=== PATIENT | male | born 2000 | race Caucasian/White ===

== ENCOUNTER 2022-05-06 16:35 | Emergency (ER) | payer MEDICAID, SELFPAY ==
[2022-05-06 16:48] VITALS: BP 140/83; PULSE 82; RESP 16; TEMP 36.6; O2SAT 97; BMI 27.9
[2022-05-06 17:00] VITALS: BP 129/84; PULSE 79; RESP 18; O2SAT 95
--- NOTE | 2022-05-06 17:18 | ED.GENADULT ---
HPI - General Adult General Chief complaint: Shortness of Breath/Dyspnea Stated complaint: Has Covid, shortness of breath Time Seen by Provider: 05/06/22 16:40 History of Present Illness HPI narrative: This 21-year-old male comes in reporting symptoms related to COVID infection. He has some nasal congestion and cough. He does notice some mild shortness of breath with exertion. He feels rather normal at rest. He was instructed to come here for evaluation by his transplant immunologist. He arrives with normal vital signs and oximetry at 97% on room air. He states that he is coughing considerable amount, especially at night. Related Data Home Medications Medication Instructions Recorded Confirmed albuterol sulfate 90 mcg/actuation inhalation 05/06/22 aerosol inhaler (Ventolin HFA) Previous Rx's Medication Instructions Recorded methylprednisolone 4 mg tablets in See Rx Instructions PO .COMPLEX 05/06/22 a dose pack (Medrol (Sánchez)) #21 ea Allergies Allergy/AdvReac Type Severity Reaction Status Date / Time No Known Drug Allergies Allergy Verified 05/06/22 16:54 Review of Systems Status of ROS: Reports: 10 or more systems reviewed and unremarkable except as noted in History and below Narrative: Constitutional: No fevers, no weight gain or loss. Eyes: No discharge. No vision changes. HENT: No congestion, no sore throat, no ear pain. Cardiovascular: No chest pain, no palpitations. Respiratory: Nonproductive cough. No wheezes. Some mild shortness of breath with exertion. Gastrointestinal: No abdominal pain, no vomiting, no diarrhea. Genitourinary: No dysuria, no hematuria. Musculoskeletal: Normal range of motion. Skin: No rashes, no pruritis. Neurological: No dizziness, weakness, sensory change, speech change. Endo/Heme/Allergies: No bruising or bleeding. No polydipsia. Pysch: no suicidality, no anxiety, no insomnia. All other systems reviewed and are negative. PFSH PFSH Social History Smoking Status: Never smoker Do you use any of these nicotine containing products: None Second hand tobacco smoke exposure: No How often do you have a drink containing alcohol: never AUDIT-C Alcohol total score: 0 Non-prescribed substance use: denies use Exam Narrative: Exam Narrative: Constitutional: Well-developed, well-nourished, no acute distress. HEENT: Normocephalic, atraumatic. Neck: Normal range of motion. Nontender. Supple. Heart: Regular. No murmurs. Normal rate. Intact distal pulses. Lungs: Clear to auscultation. No chest discomfort. No wheezes, rhonchi, or rales. Abdomen: Normal bowel sounds. Nontender. No rebound tenderness. Genitalia: Deferred. Back: No midline tenderness. Normal range of motion. Extremities: Normal range of motion. No injury. Skin: Intact. No rash. Warm. No erythema or pallor. Neurologic: No altered sensation. No weakness. Alert and oriented. Psychiatric: No suicidality. No anxiety or depression. No insomnia. Nursing notes and vitals signs are reviewed. Const: Vital Signs, click to edit/add: Vital Signs - 24 hr 05/06/22 16:48 Temperature 97.9 F Pulse Rate [Pulse Oximeter] 82 Respiratory Rate 16 Blood Pressure [Ri ght Upper Arm] 140/83 H Pulse Oximetry 97 Oxygen Delivery Me thod Room Air Course Vital Signs Vital signs: Initial Vital Signs Temperature 97.9 F 05/06/22 16:48 Temperature Source Temporal Artery Scan 05/06/22 16:48 Pulse Rate 82 05/06/22 16:48 Respiratory Rate 16 05/06/22 16:48 Blood Pressure 140/83 H 05/06/22 16:48 Blood Pressure Mean 102 05/06/22 16:48 Blood Pressure Position Supine 05/06/22 16:48 Pulse Oximetry 97 05/06/22 16:48 Oxygen Delivery Method 05/06/22 16:48 Vital Signs Temperature 97.9 F 05/06/22 16:48 Pulse Rate 82 05/06/22 16:48 Respiratory Rate 16 05/06/22 16:48 Blood Pressure 140/83 H 05/06/22 16:48 Pulse Oximetry 97 05/06/22 16:48 Oxygen Delivery Method 05/06/22 16:48 Temperature 97.9 F 05/06/22 16:48 Pulse Rate 82 05/06/22 16:48 Respiratory Rate 16 05/06/22 16:48 Blood Pressure 140/83 H 05/06/22 16:48 Pulse Oximetry 97 05/06/22 16:48 Oxygen Delivery Method 05/06/22 16:48 Medical Decision Making MDM Narrative Medical decision making narrative: This patient comes in for evaluation of symptoms related to COVID. He was tested positive about a week ago. He arrives with normal vital signs and has a rather normal exam. He does not appear to be in much distress. He is not using any accessory muscles for breathing and has normal oximetry on room air. I did discuss lab and imaging options with the patient and in a process of shared decision making these were declined for now. He did receive an oral dose of dexamethasone 10 mg. And a prescription for Tylenol 3 was provided. Discharge Plan Discharge Clinical Impression: COVID-19 Patient Disposition: Home, Self-Care Condition: Stable Additional Instructions: Use medicine as needed and directed. Follow up with MD or return if worsening symptoms occur. Prescriptions: New methylprednisolone [Medrol (Sánchez)] 4 mg tablets,dose pack See Rx Instructions .ROUTE .COMPLEX Qty: 21 0RF Rx Instructions: orally per package directions No Action albuterol sulfate [Ventolin HFA] 90 mcg/actuation HFA aerosol inhaler INHALATION Label Comments: INHALE 1 TO 2 PUFFS BY MOUTH EVERY 4 HOURS NEEDED FOR SHORTNESS OF BREATH Follow Up/Referrals: Luca Wagoner MD [Primary Care Provider] - Stand Alone Forms: [facility] Info Instructions
[2022-05-06 17:30] VITALS: BP 104/75; PULSE 71; RESP 16; O2SAT 99
--- OUTSIDE RECORDS SUMMARY | 2022-05-06 17:43 | XMS_ITS | Encounter Summary ---
:2000 [facility] Address [address], [place] [address] Care Team Providers Name Role Phone Merari Chandler APRN, CNP Primary Care Provider Reason for Visit Reason Comments IMMUNIZATIONS Encounter Details Date Type Department Care Team Description 05/30/2012 Nursing Visit [facility] 3850 Nurse, [id number] Ped Vari ojse vaccine Pediatrics (Primary Dx) [address] [facility] [place] [address] Social History Tobacco Use Types Packs/Day Years Used Date Smoking Tobacco: Never Assessed Sex Assigned at Date Recorded Not on file documented as of this encounter Progress Notes Babita Pollack LPN - 05/30/2012 9:21 AM CDT Patient desired varicella vaccine only today. documented in this encounter Plan of Treatment Not on filedocumented as of this encounter Visit Diagnoses Diagnosis Varicella vaccine - Primary Need for prophylactic vaccination and in oculation against varicella documented in this encounter Care Teams Backup Administrative Coordinator Relationship Specialty Start Date End Date Merari Chandler APRN, BERNARDO PCP - General 11/30/11 [address] [place] [id number] documented as of this encounter
--- OUTSIDE RECORDS SUMMARY | 2022-05-06 17:43 | XMS_ITS | Encounter Summary ---
:2000 Author Organization [facility] Address [address], [place] [address] Care Team Providers Name Role Phone Merari Chandler APRN, CNP Primary Care Provider [phone] Reason for Visit Reason Comments Sinusitis Encounter Details Date Type Department Care Team Description 07/08/2015 Office Visit [facility] 38[address] Merari Chandler Si nusitis, unspecified chronicity, unspecified location (Primary Dx); Pediatrics STEFANIE Rolon CNP Other fatigue [address] [facility] [address] [place] [phone] (Wo rk) Social History Tobacco Use Types Packs/Day Years Used Date Smoking Tobacco: Never Assessed Sex Assigned at Date Recorded Not on file documented as of this encounter Last Filed Vital Signs Vital Sign Reading Time Taken Comments Blood Pressure - - Pulse - - Temperature 36.4 ??C (97.5 ??F) 07/08/2015 1:06 PM [employer] Respiratory Rate - - Oxygen Saturation - - Inhaled Oxygen Concentration - - Weight 69.4 kg (153 lb 1.6 oz) 07/08/2015 1:06 PM [employer] Height - - Body Mass Index - - documented in this encounter Progress Notes Merari Chandler APRN, CNP - 07/08/2015 5:33 PM CST Subjective: Patient ID: Mick Dee is a 14 y.o. male. History was provided by the mother. Chief Complaint/HPI: Has had 2 weeks of sinus congestion. On/off cough and drippy nose but nothing he is able to blow outHeadaches at times and dizziness for a couple of days This has not happened for 4 days. He has been very tired and only gone to school 2 days in the last 2 weeks. Sleeping day and night. No fevers or chills Eating and drinking well Sore throat the first day of illness none since Patient's medications, allergies, past medical, surgical, social and family histories were reviewed and updated as appropriate. Review of Systems Pertinent items are noted in HPI Objective: Temp(Src) 97.6 ??F (36.4 ??C) (Oral) Wt 153 lb 1.6 oz (91392 g) General appearance: alert, cooperative, no distress pale in color with dark circles under the eyes Head: Normocephalic, without obvious abnormality, atraumatic Eyes: conjunctivae/corneas clear. PERRL, EOM's intact. Fundi benign Ears: normal TM's and external ear canals AU Nose: moderate congestion Throat: normal findings: soft palate, uvula, and tonsils normal Neck: supple, symmetrical, trachea midline and no adenopathy Lungs: clear to auscultation bilaterally no cough or respiratory distress Abdomen: soft no masses organomegaly noted LABS White Blood Cell Count 9.1 4.5 - 13.0 k/cmm Final Red Blood Cell Count 5.27 4.50 - 5.30 m/cmm Final Hemoglobin 15.4 13.0 - 16.0 g/dL Final Hematocrit 44.5 37.0 - 49.0 % Final Mean Corpuscular Volume 84.4 78.0 - 100.0 fL Final RDW 12.0 11.0 - 15.0 % Final Platelet Count 260 150 - 450 k/cmm Final Component Value Ref Range & Units Status Absolute Neutrophils 6.1 1.8 - 8.0 k/cmm Final Absolute Lymphocytes 2.0 1.1 - 4.0 k/cmm Final Absolute Monocytes 0.8 0.2 - 0.8 k/cmm Final Absolute Eosinophils 0.0 0.0 - 0.5 k/cmm Final Absolute Basophils 0.1 0.0 - 0.2 k/cmm Final Immature Granulocytes 0.9 (H) 0.0 - 0.5 % Final Component Value Ref Range & Units Status Mononucleosis Screen Negative Negative Final Assessment: Diagnosis and Associated Orders ICD-10-CM ICD-9-CM 1. Other fatigue R53.83 780.79 Complete Blood Count W/Diff Mononucleosis Screen 2. Sinusitis, unspecified chronicity, unspecified location J32.9 473.9 Plan: Fatigue- CBC/[place] test negative Fatigue ? r/t sinus infection Sinus Infection Amoxicillin 875 mg BID x 10 days Suspect gradual resolution of symptoms if better but not resolved in 10 days refill given to cover 20 days Symptomatic care. Encouraged fluids and rest Follow up if worsening symptoms, fevers or other concerns. Acetaminophen or ibuprofen as needed for fevers and discomfort. Nasal saline for congestion as needed. NG FORMER MACHINE documented in this encounter Plan of Treatment Not on filedocumented as of this encounter Visit Diagnoses Diagnosis Sinusitis, unspecified chronicity, unspe cified location - Primary Other fatigue documented in this encounter Care Teams Photographer Helper Relationship Specialty Start Date End Date Merari Chandler APRN, [employer]TER PCP - General 11/30/11 [address] [place] [phone] documented as of this encounter
--- OUTSIDE RECORDS SUMMARY | 2022-05-06 17:43 | XMS_ITS | Encounter Summary ---
:2000 Author Organization [facility] Address [address] [address] Care Team Providers Name Role Phone Merari Chandler APRN, CNP Primary Care Provider [phone] Reason for Visit Reason Comments WELL CHILD EXAM Encounter Details Date Type Department Care Team Description 12/28/2012 Office Visit [facility] [address] Merari Chandler child health exam (Primary Dx); Pediatrics STEFANIE Rolon CNP Cough variant asthma; [address] [place] [address] [place] Dep ression; [address] Anxiety; [facility] ed for meningococcus vaccine; [phone] Screening for developmental handicaps in souvenir and novelty maker [phone] (Wo rk) Social History Tobacco Use Types Packs/Day Years Used Date Smoking Tobacco: Never Assessed Sex Assigned at Date Recorded Not on file documented as of this encounter Last Filed Vital Signs Vital Sign Reading Time Taken Comments Blood Pressure 112/54 12/28/2012 11:43 AM CDT Pulse - - Temperature - - Respiratory Rate - - Oxygen Saturation - - Inhaled Oxygen Concentration - - Weight 47.7 kg (105 lb 4 oz) 12/28/2012 11:43 AM CDT Height 155.6 cm (5' 1.25) 12/28/2012 11:43 AM CDT Body Mass Index 19.72 12/28/2012 11:43 AM CDT Body Mass Index Percentile 67.85 % 12/28/2012 11:43 AM C DT Growth Chart: CDC (Boys, 2-20 Years) documented in this encounter Patient Instructions Patient InstructionsCherelle Beckett MA - 12/28/2012 12:07 PM CDT 11 to 14 Years: Well-Child Exam Guidelines for healthy growth and development For help after clinic hours, call your clinic and ask for pediatric urgent care or a nurse. Vvlz-yth-aryrghd medicine Aspirin: DO NOT USE Acetaminophen (Tylenol or Tempra) dose: Please see approved dosing tables or confirm dose with your clinic. Ibuprofen (Advil or Motrin) dose: Please see approved dosing tables or confirm dose with your clinic. Measurements Weight: 105 lb 4 oz (78443 g) (59.20%) Height: 5' 1.25 (155.6 cm) (47.69%) Blood Pressure: 112/54 Body Mass Index: Body mass index is 19.72 kg/(m^2). Nutrition Join your family for meals together as often as possible. Eat healthy snacks between meals. Snacks should include at least 2 food groups. Enjoy low-fat milk,yogurt, fruits, vegetables, whole grains, lean meats and beans. Limit foods high in fat or sugar, such as candy, chips and soda. Eat breakfast every day. Physical activity Get at least 60 minutes of physical activity a day. You do not have to do the 60 minutes of activity all at once. Break activity up into several shorter times throughout the day. Drink plenty of water during physical activity to help prevent cramps, exhaustion and heat stroke. Limit screen time to no more than 2 hours a day. Screen time includes watching TV or DVDs, playing video games, talking on the phone, texting and using the computer for activities other than homework. Social and emotional health Be proud of yourself when you do something well. Stay connected with your mom or dad. You might not always agree on everything, but your mom or dad can help you solve problems and support you during difficult situations. If you feel depressed or alone, or are having difficulty solving a problem, reach out for help and support. Ideally, turn to a parent or an adult you trust. Talking about your troubles with a trusted adult can help you feel better and find the support and appropriate resources you may need to deal with a problem. Support friends who choose not to use tobacco, alcohol, drugs, steroids or diet pills. Avoid situations where drugs or alcohol are available. Explore different activities that interest you, such as art, drama, volunteering, gardening and individual and team sports. Consider learning skills to help friends, family and community, such as first aid, lifesaving, CPR (cardiopulmonary resuscitation) or peer mentoring. Be sensitive to others. Do not accept behavior that is hurtful or harmful to others. Trustworthy friends will respect you and your choices. If you are being bullied, harassed or teased in a hurtful way--or know someone who is--tell a trusted adult. Reporting a bully can be scary or feel embarrassing. But bullying is not acceptable. Feeling good about yourself comes with self-respect, self-care and self- acceptance. Developing strong self-esteem comes from within, not by meeting others??? expectations about how you should look. Identify positive coping skills to deal with stress. For example, if you need help on something, ask a trusted adult. ?? Get a good night???s sleep. ?? Learn to relax. ?? Be positive. ?? Be realistic. Start with small goals and then go from there. Find nonviolent ways to handle your anger or fear. Walk away if necessary. Fighting and carrying weapons can be dangerous. School performance Get 9 hours of sleep every night. Not getting enough sleep can affect your ability to learn, listen, concentrate and solve problems, make you irritable, cause acne or lead to weight gain. Follow bedtime guidelines: ?? Go to bed and get up at the same time each day, even on weekends. ?? Turn off cell phones and other electronic devices at least an hour before bed. ?? Use the bedroom only for sleep. Keep your room quiet and dark. Set a regular time and place to do homework. The room should be quiet and free from distractions, such as TV, music, videos or cell phones. Take responsibility for getting to school and getting your homework done on time. Regular attendance at school is important. Sexuality Changes in how your body looks and works are a normal part of growing up. Everyone develops differently and at different times. Stop comparing. Comparing yourself can create competition, not connection, with others, especially friends. You may feel embarrassed, uncomfortable or anxious when talking about sex, menstruation, wet dreamsand sexual feelings and responses. However, having all the right information is important. Talk to your mom, dad or another trusted adult and get all your questions answered. Abstaining from vaginal, anal and oral sex is the safest way to prevent and sexually transmitted diseases (STD). ?? If sexually active, reduce the risk of infection with an STD by using a condom with vaginal, analand oral sex every time. ?? Using a condom and another type of prescription control with sexual intercourse is important to prevent . Talk to your clinician. Healthy dating relationships are built on respect, concern and enjoying activities together. When dating, or in any sexual situations, ???No?? means NO. Listen to and respect what another person is telling you. Saying ???No?? is OK. Safety Follow family rules and city and state laws, such as for curfews and riding in a car. Do not get heidi car with someone you do not know or who has been drinking alcohol or using drugs. Give your mom or dad a chance to meet your friends and their families. Have a plan for how to get help if you are feeling unsafe. Call for help if a situation gets dangerous. Wear protective gear and use safety equipment when playing sports, including a mouth guard. Always wear a helmet when riding a bike, rollerblading, skateboarding, snowboarding, skiing and riding a scooter. Always wear your seatbelt. If you are 4 feet 9 inches tall, you can use the vehicle seat belt alone. All children under 5 feet and 100 pounds should sit in the rear seats of vehicles. Avoid playing outdoors during dusk. If you do go outside at dusk, wear light- colored clothing to prevent mosquito bites. Use insect repellents with 30 percent or less DEET. Avoid using on your face and hands. Put sunscreen with SPF 30 or higher on 30 minutes before you go outside. Reapply sunscreen every 2 to 4 hours or after you have been in the water or sweating. [facility] [place] your teeth 2 times a day and floss at least 1 time a day. Visit the dentist every 6 months. Websites [facility]: [email or web address] [place] [employer]: [email or web address].org documented in this encounter Progress Notes Merari Chandler, STEFANIE, HEAD OF CONSERVATION - 12/28/2012 3:08 PM CDT Subjective: Mick Dee is a 11 y.o. male presenting for a Well Child Visit. Accompanied By: Aunt Concerns: Current concerns include: Has had a lot of illness this school year. Strep and URI symptoms that last 3 weeks or so at a time. Used albuterol 2 different times this winter. Seems to help. At end of illness currently. Overall feels Asthma is better then it was 1 year ago. Never tried Claritin as they did not feel he needed See's child psychiatrist quarterly for attachment issues. Zoloft 25 mg not seemingly to help per Jake. Have transportation issues and needs refill on zoloft. Wondering if can get RX today for refill. Aunt and Jake both feel he has some anxiety and worries. No sleeping issues related to this. Aunt with financial issues. No payment for having Jake live with her. No car for transportation. Nutrition: Intake/Concerns: diet normal for age, eating varied diet gets dairy and protein in diet Sleep: Pattern/Concerns: no concerns 8 hours/night Safety NO alcohol smoking or drugs NO weapons at home Mental Health Anxiety/depression Thoughts of suicide only NO plan Would like to change his mental psycosis hx Talks to aunt with concerns Does Math/Science well Has had bullying in past Likes self 4 out of 5 Likes school Social: School: no concerns, seventh grade, gets As, gets Bs Activities: sedentary Social: good peer interactions, Does not get together with friends outside of school d/t transportation issues Dental: Dental care: no concerns, brushing daily, no dental visit in 12 months Developmental and Psychosocial Surveillance: PSC-17: 12/28/12 () Y PSC-17: 12/28/12 () Concerns include: none No Known Allergies Outpatient Prescriptions Prior to Visit Medication Sig Dispense Refill ??? albuterol (PROAIR HFA) 90 mcg/actuation inhaler Inhale 1-2 puffs every 4 hours as needed. 1 Inhaler 3 ??? loratadine (CLARITIN REDITABS) 10 mg dissolvable tablet Take 1 tablet by mouth daily (every 24 hours). 30 tablet 11 ??? sertraline (ZOLOFT) 25 mg tablet Take 25 mg by mouth daily (every 24 hours). No facility-administered medications prior to visit. Patient Active Problem List Diagnosis ??? Asthma Cough Variant ??? Depression ??? Anxiety No past medical history on file. Family History Problem Relation Age of Onset ??? Mental Illness Mother sc hitzophrenia ??? Mental Illness Father Aspneo's ??? Migraines Maternal Aunt ??? Mult Sclerosis Maternal Grandmother ??? Heart Disease Maternal Grandfather congested heart failure Objective: BP 112/54 Ht 5' 1.25 (155.6 cm) Wt 105 lb 4 oz (98858 g) BMI 19.72 kg/m2 General:no distress, alert Head: normal Eyes: appear normal ENT:Ears: no deformity, normal TM's Neck:normal, full range of motion, no mass, no thyromegaly Chest:normal respiratory effort, lungs clear to auscultation, normal shape, normal breathing pattern Heart:regular rate and rhythm, normal heart sounds, no murmurs Abdomen: normal appearance, soft, non-tender, without organ enlargements, no masses Genitourinary: normal male genitalia, phyllis 2 Musculoskeletal: extremities normal Skin: no rash or lesions Neurologic: non focal, normal strength, normal tone, age-appropriate responsiveness and reflexes, symmetric movements Hearing normal Followed by Ophthamology for eyes Wears glasses ACT 22 Spirometry: FVC: 80% FEV1: 80% FEV1/FVC: 101% Shows mild airway obstruction (end of illness) Previous spirometry normal Assessment: 11 y.o. 11 m.o. Well Child Visit. Asthma Anxiety/Depression Plan: Diagnosis (ICD9) and Associated Orders 1. Routine child health exam (V20.2) TX C&TC components completed 2. Asthma Cough Variant (493.82) SPIROMETRY 77487 3. Depression (311) 4. Anxiety (300.00) 5. Need for meningococcus vaccine (V03.89) IMMUNIZATION COUNSELING PERFORMED BY CLINICIAN, MCV4 (Menactra) 6. Screening for developmental handicaps in souvenir and novelty maker (V79.3) TX DEVELOPMENTAL TEST, GREEN Depression/Anxiety Refill on Zoloft 25 mg given 1 daily Gave Aunt numbers to our mental health dept for our child psychiatry Encouraged medication follow ups with Dr Bradford d/t complicated family mental health history Asthma Continue Albuterol inhaler prn AMP updated copies given to aunt for her and school ACT normal Message left for our medical certified home health aide to help family with coordination of mental healthcare and transportation issues Questions and concerns discussed, anticipatory guidance reviewed. Follow up at next well visit or sooner as needed. Sports Clearance: cleared for all activities Immunization counseling: completed for all immunization components received by the patient today Developmental screening: normal results Dental counseling: discussed dental care, referral to dentist Child & Teen Checkup: C&TC patient, yes referral made documented in this encounter Miscellaneous Notes Letter - Merari Chandler APRN, CNP - 12/28/2012 12:00 AM CDT My Asthma Management Plan Name: Mick Tyler Dee Date: 12/28/2012 My Medical Provider: Merari Chandler My Asthma Specialist: My Clinic: [facility] [address] [facility] Phone #: [phone] Know your asthma triggers: Colds and Viruses GREEN ZONE Good Control You have ALL of these: ?? Breathing is good ?? No cough or wheeze ?? Can work/exercise/play easily ?? No night coughing Take your asthma control medicine every day: No daily controller medicine needed IF exercise triggers your asthma - take Albuterol Inhaler, 2 puffs [ProAir, Proventil, Ventolin] ?? 15 minutes before exercise or sports, and ?? During exercise if you have asthma symptoms YELLOW ZONE Getting Worse You have ANY of these: ?? It's hard to breath ?? Coughing ?? Wheezing ?? Tightness in chest ?? Cannot work/play easily ?? Wake up at night coughing 1. Keep taking your Green Zone medications. 2. Start taking your Albuterol Inhaler, 2 puffs [ProAir, Proventil, Ventolin] every 20 minutes as needed for up to 1 hour. Then every 4 to 6 hours as needed. 3. If you do not return to the Green Zone in 12-24 hours or you get worse:Contact your clinic. RED ZONE Medical Alert - Get Help You have ANY of these: ?? It's very hard to breathe ?? Ribs are showing while breathing ?? Medicine is not helping ?? Trouble walking or talking ?? Lips or fingernails are shore or bluish 1. Take your rescue medicine NOW: Albuterol Inhaler, 2-4 puffs [ProAir, Proventil, Ventolin] EVERY 20 MINUTES. 2. If your provider has prescribed an oral steroid medicine, start taking it NOW. 3. Call your clinic NOW. 4. If you are still in the Red Zone after 20 minutes and you have not reached your clinic: ?? Take your rescue medicine again and ?? Call 911 or go to the emergency room right away Please follow up with your Health Care Provider within 2 weeks of an Emergency Room or Urgent Care visit for follow-up treatment. Electronically signed by: Merari Chandler, PNP, 12/28/2012 Created by: Merari Chandler Asthma Management Plan and Trigger Control Sheet given to patient/caregiver Reminders: Asthma visit 1-2 times yearly or as instructed by your clinician, Influenza shot yearly Child/School Options For Child: The above medicines may be given at school or day care Parent Signature: Asthma Triggers How To Control Things That Make Your Asthma Worse Triggers are things that make your asthma worse. Look at the list below to help you find your triggers and what you can do about them. You can help prevent asthma flare-ups by staying away from your triggers. Trigger What you can do Cigarette Smoke Tobacco smoke can make asthma worse. Do not allow smoking in your home, car or around you. Be sure no one smokes at a child???s day care or school. If you smoke, ask your health care provider for ways to help you quick. Ask family members to quit too. Ask your health care provider for a referral to Quit plan to help you quit smoking, or call 6-537-357-PLAN. Colds, Flu, Bronchitis These are common triggers of asthma. Wash your hands often. Don???t touch your eyes, nose or mouth. Get a flu shot every year. Dust Mites These are tiny bugs that live in cloth or carpet. They are too small to see. Wash sheets and blankets in hot water every week. Encase pillows and mattress in dust mite proof covers. Avoid having carpet if you can. If you have carpet, vacuum weekly. Use a dust mask and HEPA vacuum. Pollen and Outdoor Mold Some people are allergic to trees, grass, or weed pollen, or molds. Try to keep your windows closed. Limit time out doors when pollen count is high. Ask you health care provider about taking medicine during allergy season. Animal Dander Some people are allergic to skin flakes, urine or saliva from pets with fur or feathers. Keep pets with fur or feathers out of your home. If you can???t keep the pet outdoors, then keep the pet out of your bedroom. Keep the bedroom door closed. Keep pets off cloth furniture and away from stuffed toys. Mice, Rats, and Cockroaches Some people are allergic to the waste from these pets. Cover food and garbage. Clean up spills and food crumbs. Store grease in the refrigerator. Keep food out of the bedroom. Indoor Mold This can be a trigger if your home has high moisture Fix leaking faucets, pipes, or other sources ofwater. Clean moldy surfaces. Dehumidify basement if it is damp and smelly. Smoke, Strong Odors, and Sprays These can reduce air quality. Stay away from strong odors and sprays, such as perfume, powder, hair spray, paints, smoke incense, paints, cleaning products, candles and new carpet. Exercise or Sports Some people with asthma have this trigger. Be active! Ask you doctor about taking medicine before sports or exercise to prevent symptoms. Warm up for 5-10 minutes before and after sports or exercise. Other Triggers of Asthma Cold air: Cover your nose and mouth with a scarf. Sometimes laughing or crying can be a trigger. Some medicines and food can trigger asthma. [employer]OR OF REHABILITATIVE SERVICES Letter - Merari Chandler APRN, HEAD OF CONSERVATION - 12/28/2012 12:00 AM CDT Return to Work/School Date: 12/28/2012 To Whom It May Concern Mick Dee is a patient at [facility] and [facility]. [] Should take medications as directed on prescription, administered by school personnel [] Was under our care. [] Was seen in my office for an illness on the above date. [x] Was seen in my office for a physical exam on the above date. [] Is unable to participate in sports / physical education Specific exclusions: [] Is able to return to sports / physical education as of: Exclusions: [] Should refrain from flying because of illness. [] Called for advice concerning an illness and missed: [] Work [] School From To [] Other: Comments: Signature of MD / RN CTOR OF REHABILITATIVE SERVICES documented in this encounter Plan of Treatment Not on filedocumented as of this encounter Visit Diagnoses Diagnosis Screening for developmental handicaps in souvenir and novelty maker Cough variant asthma ([facility]) Cough variant asthma Depression Depressive disorder, not elsewhere class ified Anxiety ([facility]) Anxiety state, unspecified Need for meningococcus vaccine Need for other specified prophylactic va ccination against single bacterial disease documented in this encounter Care Teams Brokerage Manager Relationship Specialty Start Date End Date Merari Chandler APRN, HEAD OF CONSERVATION PCP - General 11/30/11 [address] [place] [phone] documented as of this encounter
--- OUTSIDE RECORDS SUMMARY | 2022-05-06 17:43 | XMS_ITS | Encounter Summary ---
:2000 Author Organization [facility] Address [address] [address] Care Team Providers Name Role Phone GeraldineMerari APRN, DYSLEXIA TEACHER Primary Care Provider [phone] Encounter Details Date Type Department Care Team Description 07/08/2015 Lab Visit [facility] [address] Other fatigue [address] [place] [address] Social History Tobacco Use Types Packs/Day Years Used Date Smoking Tobacco: Never Assessed Sex Assigned at Date Recorded Not on file documented as of this encounter Plan of Treatment Not on filedocumented as of this encounter Procedures Procedure Name Priority Date/Time Associated Comments Diagnosis COMPLETE BLOOD STAT 07/08/2015 1:39 PM Other fatigue Result s for this COUNT-W/DIFF [facility]ISH[facility] procedure are i n the results section. DIFFERENTIAL STAT 07/08/2015 1:39 PM Results f or this POLISHER ALUMINUM procedure are i n the results section. MONO TEST STAT 07/08/2015 1:39 PM Other fatigue Results for this POLISHER ALUMINUM procedure are i n the results section. documented in this encounter Results (ABNORMAL) Differential (07/08/2015 1:39 PM POLISHER ALUMINUM) [facility] Method Time Signature Absolute 6.1 1.8 - 8.0 HP CONVERSION Neutrophils k/cmm Absolute 2.0 1.1 - 4.0 HP CONVERSION Lymphocytes k/cmm Absolute 0.8 0.2 - 0.8 HP CONVERSION Monocytes k/cmm Absolute 0.0 0.0 - 0.5 HP CONVERSION Eosinophils k/cmm Absolute 0.1 0.0 - 0.2 HP CONVERSION Basophils k/cmm Immature 0.9 (H) 0.0 - 0.5 HP CONVERSION Granulocytes % Specimen Anatomical Collection Method Collection Time Receive d Time (Source) Location / / Volume Laterality 07/08/2015 1:39 PM 5 1:39 [facility] PM [facility] Narrative HP CONVERSION - 07/08/2015 1:44 PM [facility]UM Performed at [facility], [address] [place] [address] CLIA number [id number] Merari Chandler APRN, DYSLEXIA TEACHER LAB_1 Performing Organization Address [facility] Phon e Number HP CONVERSION [place] Test (07/08/2015 1:39 PM POLISHER ALUMINUM) [facility] gist Method Time Signature Mononucleosis Negative Negative HP CONVERSION Screen Specimen Anatomical Collection Method Collection Time Receive d Time (Source) Location / / Volume Laterality 07/08/2015 1:39 PM 5 1:39 POLISHER ALUMINUM PM POLISHER ALUMINUM Narrative HP CONVERSION - 07/08/2015 1:52 PM POLISHER ALUMINUM Performed at [facility], [address] [place] [address] CLIA number [id number] Merari Chandler APRN, DYSLEXIA TEACHER LAB_1 Performing Organization Address [facility] Phon e Number HP CONVERSION Complete Blood Count W/Diff (07/08/2015 1:39 PM POLISHER ALUMINUM) P athologist Signature White Blood Cell 9.1 4.5 - 13.0 HP CONVERSIO N Count k/cmm Red Blood Cell 5.27 4.50 - HP CONVERSION Count 5.30 m/cmm Hemoglobin 15.4 13.0 - HP CONVERSION 16.0 g/dL Hematocrit 44.5 37.0 - HP CONVERSION 49.0 % Mean Corpuscular 84.4 78.0 - HP CONVERSION Volume 100.0 fL RDW 12.0 11.0 - HP CONVERSION 15.0 % Platelet Count 260 150 - 450 HP CONVERSION k/cmm Specimen Anatomical Collection Method Collection Time Receive d Time (Source) Location / / Volume Laterality 07/08/2015 1:39 PM 5 1:39 POLISHER ALUMINUM PM POLISHER ALUMINUM Narrative HP CONVERSION - 07/08/2015 1:44 PM POLISHER ALUMINUM Performed at [facility], [address] [place] [address] CLIA number [id number] Merari Chandler APRN, CNP LAB_1 Performing Organization Address City/State/ZIP Code Phon e Number HP CONVERSION documented in this encounter Visit Diagnoses Diagnosis Other fatigue documented in this encounter Care Teams Shredder/Granulator Operator Relationship Specialty Start Date End Date Merari Chandler APRN, BERNARDO PCP - General 11/30/11 [address] [place] [phone] documented as of this encounter
--- OUTSIDE RECORDS SUMMARY | 2022-05-06 17:43 | XMS_ITS | Encounter Summary ---
:2000 [facility] Address [address], [place] [address] Care Team Providers Name Role Phone Merari Chandler APRN, CNP Primary Care Provider [phone] Reason for Visit Reason Comments IMMUNIZATIONS Encounter Details Date Type Department Care Team Description 05/29/2012 Telephone [facility] [address] Merari Chandler, IMMUNIZATIONS Pediatrics BERNARDO WATTS [address] [place] [address] [place], [place] [phone] (Wo rk) Social History Tobacco Use Types Packs/Day Years Used Date Smoking Tobacco: Never Assessed Sex Assigned at Date Recorded Not on file documented as of this encounter Nursing Notes Nallely Leonard RN - 05/29/2012 1:02 PM CDT Advised needs another varicella and has had no hep A Nery Dhillon - 05/29/2012 12:55 PM CDT Non -Symptom Message from Front Line Primary Care Provider: NICOLE Edwards Message: States that she would like to know if patient is up to date on immunizations. Please advise. documented in this encounter Plan of Treatment Not on filedocumented as of this encounter Visit Diagnoses Not on filedocumented in this encounter Care Teams Reinsurance Claim Analyst Relationship Specialty Start Date End Date Merari Chandler APRN, PREPRESS STRIPPER PCP - General 11/30/11 [address] [place] [phone] documented as of this encounter
--- OUTSIDE RECORDS SUMMARY | 2022-05-06 17:43 | XMS_ITS | Encounter Summary ---
:2000 Author [facility] Address [address], [place] [address] Care Team Providers Name Role Phone Merari Chandler APRN, CNP Primary Care Provider Reason for Visit Reason Comments Care Coordination Encounter Details Date Type Department Care Team Description 12/29/2012 Telephone [facility] 3850 P ediatrics Rosie Spivey Care Coordination [address] [place], [place] [phone] Social History Tobacco Use Types Packs/Day Years Used Date Smoking Tobacco: Never Assessed Sex Assigned at Date Recorded Not on file documented as of this encounter Nursing Notes Rosie Spivey - 12/29/2012 10:23 AM CDT Contact with: Called Aiyana Reason for contact: to assist with care coordination with mental health and other services Follow-up: left message will wait for call back from legal guardian documented in this encounter Plan of Treatment Not on filedocumented as of this encounter Visit Diagnoses Not on filedocumented in this encounter Care Teams Reamer Hand Relationship Specialty Start Date End Date Merari Chandler APRN, BERNARDO PCP - General 11/30/11 [address] [place] [phone] documented as of this encounter
--- OUTSIDE RECORDS SUMMARY | 2022-05-06 17:43 | XMS_ITS | Encounter Summary ---
:2000 Author Organization [facility] Address [address], [place] [address] Care Team Providers Name Role Phone Merari Chandler APRN, STRIP CUTTING MACHINE OPERATOR Primary Care Provider [phone] Reason for Referral Therapies (Routine) - New Request Specialty Diagnoses / Procedures Referred By Contact Refer red To Contact Physical Therapy Diagnoses Acute right-sided low back pain without sciatica Prabhu [facility] [address] [facility] [address] [place] [address] [place] [address] Referral ID Status Reason Start Date Expiration Date Visits V isits Requested Authorized [id number] New Request 03/30/2022 03/30/2023 1 1 Scheduling Instructions Your provider has recommended an appoint ment with [facility]. You can quickly make your appointment online at ByAllAccounts/schedule. You can also call [phone] for help scheduling yo ur appointment. We suggest you call your health insurance company about your cove rage and benefits for this appointment. Encounter Details Date Type Department Care Team Description 03/30/2022 Telemedicine [facility] Prabhu Wu Acute right-sided low Medicine MD [place] back pain without [address] [place] (Primary Dx) [place] [address] [place], [place] [phone] (Wo rk) Social History Tobacco Use Types Packs/Day Years Used Date Smoking Tobacco: Never Smokeless Tobacco: Never Sex Assigned at Date Recorded Not on file documented as of this encounter Patient Instructions AttachmentsThe following attachments cannot be sent through Care Everywhere. EXERCISES FOR BACK PAIN (UKRAINIAN)documented in this encounter Progress Notes Prabhu Wu MD - 03/30/2022 9:40 AM CDT SUBJECTIVE: [VIDEO VISIT] Patient is a 21 y.o. male who presents via video visit for low back pain following recent asthma exacerbation. Asthma exacerbation has since cleared on its own, but he had strong coughing fits that triggered new onset low back pain. Mostly midline, no radiating symptoms, no red flag symptoms (no numbne ss/tingling, loss of bowel or bladder control). No injury or trauma otherwise noted. Has never had back pain like this in the past. Never had PT, imaging, injections, surgery. Has been off from work due to asthma exacerbation now back pain. Summer job ends this . Medications reviewed in [facility]. No Known Allergies History reviewed. No pertinent past medical history. Patient Active Problem List Diagnosis Cough variant asthma (HRC) Depression Anxiety (HRC) Review of Systems Review of systems otherwise negative than that mentioned in HPI. OBJECTIVE: No vitals - VIDEO VISIT General: Alert and conversational, pleasant, in no acute distress HEENT: Head is atraumatic, normocephalic. Eyes are clear without conjunctival erythema or injection. Neck: Full ROM Lungs: Speaking in complete sentences without pause, no cough Neuro: CN II-XII grossly intact. Psych: Appropriate mood and affect. ASSESSMENT AND PLAN: Diagnoses and all orders for this visit: Acute right-sided low back pain without sciatica - Physical Therapy Will initiate PT and home exercises. Can try limited course of Alleve OTC. Discussed appropriate useand possible side effects of medication. If no relief in 4-6 weeks can get MRI and PM&R referral. Work note provided. This visit was conducted via video. Location of clinician home. Location of patient home. Billing based on: Annalee Wu MD [facility] documented in this encounter Plan of Treatment Scheduled Referrals Name Type Priority Associated Diagnoses Order S chedule Physical Therapy Referral Routine Acute right-sided low ba ck Ordered: 03/30/2022 pain without sciatica documented as of this encounter Visit Diagnoses Diagnosis Acute right-sided low back pain without sciatica - Primary documented in this encounter Care Teams Cafe Team Member Relationship Specialty Start Date End Date Merari Chandler APRN, STRIP CUTTING MACHINE OPERATOR PCP - General 11/30/11 [address] [place] [phone] documented as of this encounter
--- OUTSIDE RECORDS SUMMARY | 2022-05-06 17:43 | XMS_ITS | Encounter Summary ---
:2000 Author Organization [facility] Address [address], [place] [address] Care Team Providers Name Role Phone Merari Chandler APRN, MDM DEVELOPER Primary Care Provider Reason for Visit Reason Comments CONSULT Encounter Details Date Type Department Care Team Description 08/17/2017 Initial Consult [facility] [address] As[address]rickson M ild intermittent Allergy asthma without [address] ([address]x) [place] [phone] Social History Tobacco Use Types Packs/Day Years Used Date Smoking Tobacco: Never Smokeless Tobacco: Never Sex Assigned at Date Recorded Not on file documented as of this encounter Last Filed Vital Signs Vital Sign Reading Time Taken Comments Blood Pressure 138/74 08/17/2017 9:40 AM CHANNEL LIP WETTER Pulse 66 08/17/2017 9:40 AM CHANNEL LIP WETTER Temperature - - Respiratory Rate - - Oxygen Saturation 98% 08/17/2017 9:40 AM CHANNEL LIP WETTER Inhaled Oxygen Concentration - - Weight 80.1 kg (176 lb 9.6 oz) 08/17/2017 9:40 AM CHANNEL LIP WETTER Height 179.7 cm (5' 10.75) 08/17/2017 9:40 AM CHANNEL LIP WETTER Body Mass Index 24.81 08/17/2017 9:40 AM CHANNEL LIP WETTER Body Mass Index Percentile 81.88 % 08/17/2017 9:40 AM CS T Growth Chart: CDC (Boys, 2-20 Years) documented in this encounter Patient Instructions Patient InstructionsAsuncion Hendrickson MD - 08/17/2017 9:20 AM CST Your Methacholine challenge test was positive meaning you have asthma. Asthma should NOT be an excuse to NOT exercise. Use the albuterol as needed. If your breathing interferes with things you should do like exercise and sleep, LET ME KNOW. Call or let me know if you have any questions or problems. NEL LIP WETTER documented in this encounter Progress Notes Asuncion Hendrickson MD - 08/17/2017 1:13 PM CST NAME: MICK DEE MR#: [id number] CSN: [id number] AUTHENTICATING CLINICIAN: Asuncion Hendrickson MD CONFIRM #: [id number] LOC: 414 CLINIC PROGRESS NOTE DATE OF VISIT: 08/17/2017 : 2000 Mick, who goes by Nirav, is a 16-year-old male accompanied by his mother, Aiyana. Nirav was diagnosed with asthma over 10 years ago. He did have an albuterol inhaler that he would use periodically which seemed to provide some benefit. It has been years since he has had the inhaler available. Aiyana believes Nirav is using his breathing as an excuse to not exercise and she would like him to adopt more healthy lifestyle practices which include exercise. Nirav admits part of his hesitation is exercisehas triggered symptoms in the past and he is afraid to cause problems. Nirav describes wheezing, chest congestion and shortness of breath with some tightness. Rare cough. She gave the example of walkinghis dog on a cold day. He ran up a hill and had symptoms. It caused him to stop running, but he was able to continue walking. He did not have his inhaler and symptoms subsided after he returned to his house and rested. Colds do tend to go into his chest with symptoms lasting as long as the nasal conges tion. He claims to have mild symptoms 2 to 3 times per week. Mom was unaware of this frequency. Onceasleep, he has rare nighttime awakening because of breathing issues and if he does awake, it is usually with a cold. No urgent care or emergency room visits. No history of pneumonia. Will thinks he cannot breathe completely through both nostrils simultaneously. It feels like things are swollen inside. There was no obvious sneezing, need to blow his nose or pruritus. No consistent triggers. No seasonal variation. He does not feel nasal symptoms are severe enough to warrant any medication interventions. Will have had 2 episodes of isolated hives, 1 at age 6 and another at approximately age 12. There was no obvious cause. No other skin rashes. No adverse reactions to food or bee stings. PAST MEDICAL HISTORY: History of depression and anxiety. Currently off all medication. No surgery. FAMILY HISTORY: One maternal uncle with hives and sinus disease that did require surgery. Will lives in a 94-year-old home, forced air heat, central air conditioning, upper level bedroom with wood floors. He does have feather pillows. There are 2 Vizsla dogs. He is a senior at [employer] and will attend college in the fall. No smoke exposure. PHYSICAL EXAM: VITAL SIGNS: BP 138/74, pulse 66 regular, height 70.75 inches, weight 176.6 pounds, O2 sat 98% on room air. GENERAL: Healthy, quiet, young man, in no acute distress. SKIN: Warm, dry, no rash. HEENT: Eyes: Conjunctivae clear. PERRLA. Ears: Canals patent. TMs normal. Nose: Widely patent, healthy-appearing, moist mucosa. No purulence or polyps. Oropharynx clear. Teeth and gums good repair. NECK: Supple. No adenopathy. Thyroid not palpable. LUNGS: Clear with good air movement. No wheezes, rales or rhonchi. CV: Regular rate and rhythm. Normal S1, S2. No murmurs, rubs or gallops. Spirometry normal. FEV1 4.44 L, 99%; FVC 5.08 L, 95%; ratio 87%; small airflow 5.29 L/S, 112% of predicted. Methacholine challenge performed. At stage I, FEV1 fell from 4.44 L to 3.14 L, but did not meet strict criteria for asthma. At stage II or 5 mg/dL, FEV1 decreased 53%. He did reverse close to baseline following bronchodilator challenge. Skin testing not performed. IMPRESSION: Asthma documented by positive methacholine challenge. Reviewed both bronchospastic and inflammatory component of disease. Goals of treatment are to minimize current symptoms, but also prevent ongoing inflammation that can cause scarring or remodeling over time. Asthma should not be an excuse not to exe rcise. Reviewed MDI technique. Would use albuterol as needed. If albuterol alone is not enough to control symptoms or if he finds his breathing interferes with activity, especially exercise or sleep, further evaluation is warranted. PLAN: 1. Albuterol 2 puffs q.4 hours p.r.n. and prior to exercise. 2. The importance of ongoing exercise emphasized. 3. Return to the clinic with me March 2018 or p.r.n. PJ:MEDQ C: CONFIRM #: [id number] NEL LIP WETTER Asuncion Hendrickson MD - 08/17/2017 9:20 AM CST Complete note dictated. NEL LIP WETTER documented in this encounter Plan of Treatment Scheduled Orders Name Type Priority Associated Diagnoses Order S chedule Bronchial challenge with PFT Routine Mild intermitten t asthma 1 Occurrences starting methacholine without complication 018 until 08/17/2018 documented as of this encounter Visit Diagnoses Diagnosis Mild intermittent asthma without complic ation (HRC) - Primary Unspecified asthma documented in this encounter Care Teams Assembler Skylights Relationship Specialty Start Date End Date Merari Chandler APRN, MDM DEVELOPER PCP - General 11/30/11 [facility] [place] [phone] documented as of this encounter
--- OUTSIDE RECORDS SUMMARY | 2022-05-06 17:43 | XMS_ITS | Encounter Summary ---
:2000 Author Organization [facility] Address [address], [place] [address] Care Team Providers Name Role Phone Merari Chandler APRN, CNP Primary Care Provider Reason for Visit Reason Comments Medication Questions Encounter Details Date Type Department Care Team Description 07/08/2015 Telephone [facility] [address]ari [address] dication Questions Pediatrics MSTEFANIE, MOLD WORKER [facility] [facility] [address] [facility] [place] [phone] (Wo rk) Social History Tobacco Use Types Packs/Day Years Used Date Smoking Tobacco: Never Assessed Sex Assigned at Date Recorded Not on file documented as of this encounter Nursing Notes Nallely Leonard RN - 07/08/2015 2:20 PM CST Pharmacist advised as per Shruthi Chandler 's note . R MACHINE OFFBEARER Merari Chandler APRN, BERNARDO - 07/08/2015 2:15 PM CST Im fine with that but pharmacist should check with mom first to see if she wants TID or BID dosing R MACHINE OFFBEARER Nallely Leonard RN - 07/08/2015 2:08 PM CST Pharmacy states the 875 not in stock . Can you consider changing to 500 mg TID ? R MACHINE OFFBEARER Merari Chandler APRN, MOLD WORKER - 07/08/2015 2:02 PM CST It's in the medication list as 875 mg BID R MACHINE OFFBEARER Nallely Leonard, EDDI - 07/08/2015 1:59 PM CST Merari , what is dose you wanted for the amox ? I do not see it in the notes . R MACHINE OFFBEARER Karina Burns - 07/08/2015 1:55 PM CST Pharmacy calling has dosage medication questions for Amoxicillin,875mg. R MACHINE OFFBEARER documented in this encounter Plan of Treatment Not on filedocumented as of this encounter Visit Diagnoses Not on filedocumented in this encounter Care Teams Glove Cleaner Relationship Specialty Start Date End Date Merari Chandler APRN, MOLD WORKER PCP - General 11/30/11 [address] [place] [phone] documented as of this encounter
--- OUTSIDE RECORDS SUMMARY | 2022-05-06 17:43 | XMS_ITS | Encounter Summary ---
:2000 Author Organization [facility] Address [address], [place] [address] Care Team Providers Name Role Phone Merari Chandler APRN, CNP Primary Care Provider Reason for Visit Reason Comments Annual Exam Encounter Details Date Type Department Care Team Description 03/20/2013 Office Visit [place] Meliton Jacob, O D Examination of eyes and vision (Primary Dx); Ophthalmology [address] [facility] [place], [place]. [address] [place], [place] [address] [phone] Social History Tobacco Use Types Packs/Day Years Used Date Smoking Tobacco: Never Assessed Sex Assigned at Date Recorded Not on file documented as of this encounter Progress Notes Meliton Jacob, OD - 03/20/2013 1:05 PM CDT Patient is alert. Complete eye exam. Spectacle Rx given for refractive error. Recheck 1 year(s) or sooner as needed. documented in this encounter Plan of Treatment Not on filedocumented as of this encounter Visit Diagnoses Diagnosis Examination of eyes and vision - Primary Myopia documented in this encounter Care Teams Calender Supervisor Relationship Specialty Start Date End Date Merari Chandler APRN, OIL EXPLORATION ENGINEER PCP - General 11/30/11 [address] [place] [phone] documented as of this encounter
--- OUTSIDE RECORDS SUMMARY | 2022-05-06 17:43 | XMS_ITS | Encounter Summary ---
:2000 Author Organization [facility] Address [address], [place] [address] Care Team Providers Name Role Phone Merari Chandler APRN, BERNARDO Primary Care Provider [phone] Encounter Details Date Type Department Care Team Description 06/03/2014 Care Coord Documentation [facility] [address], Pediatrics RN [address] [place] [address] [phone] Social History Tobacco Use Types Packs/Day Years Used Date Smoking Tobacco: Never Assessed Sex Assigned at Date Recorded Not on file documented as of this encounter Plan of Treatment Not on filedocumented as of this encounter Visit Diagnoses Not on filedocumented in this encounter Care Teams Instrumentation Supervisor Relationship Specialty Start Date End Date Merari Chandler APRN, EVP SALES PCP - General 11/30/11 [address] [place] [phone] documented as of this encounter
--- OUTSIDE RECORDS SUMMARY | 2022-05-06 17:43 | XMS_ITS | Clinical Summary ---
:[address] [facility] Address [address] [address] Care Team Providers Name Role Phone Merari Chandler APRN, ADJUSTER LEADER Primary Care Provider [phone] Source Comments You are receiving this document as you are listed as the primary care provider,follow-up provider, or the patient has been referred to you for consultation.This is in compliance with the Medicare and Medicaid EHR Incentive Program,which states Providers who transition their patient to another setting of careor provider of care or refers their patient to another provider of care shouldprovide summarycare record for each transition of care or referral. [facility] Allergies No known active allergies Medications Medication Sig Dispensed Refills Start Date End Date Status ALBUterol sulfate HFA Inhale 2 Puffs 18 g 1 08/17/2017 Active 108 (90 BASE) MCG/ACT every 4 hours as inhaler needed. Active Problems Problem Noted Date Depression 11/30/2011 Anxiety 11/30/2011 Cough variant asthma 05/17/2006 Overview: LW Onset: [id number] ; Asthma Cough Variant Encounters Date Type Specialty Care Team Description 03/30/2022 Telemedicine Family Medicine Prabhu Wu, Emilee e right-sided low MD back pain witho ut sciatica (Prima ry Dx) from Last 3 Months Immunizations Name Administration Dates Next Due DTaP 11/27/2004, 07/20/2001, 07/09/2000, 04/2000, 03/01/2000 Flu Vac Preserv Free (3+yrs) 05/12/2010 Hib/HBV 12/29/2000, 05/09/2000, 03/01/2000 IPV (Polio) 11/27/2004, 04/10/2001, 12/29/2000, 04/2000, 03/01/2000 MCV4 (Menactra) 12/28/2012 MMR 11/27/2004, 04/10/2001 TDAP (ADACEL) 11/30/2011 Varicella 05/30/2012, 12/29/2000 Family History Medical History Relation Name Comments Mental Disorder Father Aspberger's Mental Disorder Mother sc hitzophrenia Migraines Maternal Aunt Heart Disease Maternal Grandfather congested h eart failure Cataract Maternal Grandmother Multiple Sclerosis Maternal Grandmother Diabetes Negative Family History Glaucoma Negative Family History Macular Degeneration Negative Family History Retinal Detachment Negative Family History Relation Name Status Comments Father Alive Mother Alive Maternal Aunt Alive Maternal Grandfather Alive Maternal Grandmother Alive Social History Tobacco Use Types Packs/Day Years Used Date Smoking Tobacco: Never Smokeless Tobacco: Never Sex Assigned at Date Recorded Not on file Last Filed Vital Signs Vital Sign Reading Time Taken Comments Blood Pressure 138/74 08/17/2017 9:40 AM RECOVERER Pulse 66 08/17/2017 9:40 AM RECOVERER Temperature 36.4 ??C (97.5 ??F) 07/08/2015 1:06 PM RECOVERER Respiratory Rate 20 08/29/2006 8:07 AM RECOVERER Oxygen Saturation 98% 08/17/2017 9:40 AM RECOVERER Inhaled Oxygen Concentration - - Weight 80.1 kg (176 lb 9.6 oz) 08/17/2017 9:40 AM RECOVERER Height 179.7 cm (5' 10.75) 08/17/2017 9:40 AM RECOVERER Body Mass Index 24.81 08/17/2017 9:40 AM RECOVERER Plan of Treatment Health Maintenance Due Date Last Done Comments Hep C Screening (Preventive 1999 Services) COVID-19 Vaccine (#1) 07/01/2000 Pneumococcal (1 - PCV) 12/30/2005 04/10/2001 HIV Screening (Preventive 2015 Services) Adult Preventive Visit 12/30/2017 HPV Vaccine (2 - Male 09/25/2019 08/28/2019 3-dose series) DTaP/Tdap/Td (7 - Tdap) 11/29/2021 11/30/2011, 11/27/2004, 07/20/2001, Additional history exists Influenza (#1) 2022 05/12/2010, 05/12/2010 Asthma ACT 03/30/2023 03/30/2022, 03/30/2022 Zoster/Shingles (1 of 2) 12/30/2049 HepB Completed 12/29/2000, 05/09/2000, 03/01/2000 Hib Completed 12/29/2000, 05/09/2000, 03/01/2000 IPV (Polio) Completed 11/27/2004, 04/10/2001, 12/29/2000, Additional history exists Varicella Completed 05/30/2012, 12/29/2000 MCV4 Aged Out 08/28/2019, 12/28/2012 No longer eligible based on patient 's age to complete this topic HepA Aged Out No longer eligib le based on patient 's age to complete this topic Insurance Payer Benefit Plan / Subscriber ID Effective Dates Phone Addre ss Type Group [facility] [id number] 2021-Present Medicaid Mick Dee Personal/Famil Self 2000 [id number] (Home) [place] [address] LeilaAiyana Personal/Famil Legal Guardian 04/20/1958 [address] (Home) [facility] [phone] [place], [place] (Work) [address] Care Teams Tire Groover Relationship Specialty Start Date End Date Merari Chandler, PUBLIC SERVICES ASSISTANT, ADJUSTER LEADER PCP - General 11/30/11 [address] [place] [phone]
--- OUTSIDE RECORDS SUMMARY | 2022-05-06 17:43 | XMS_ITS | Encounter Summary ---
:1999 Author Organization [employer] Address [address] [place] [address] Care Team Providers Name Role Phone Merari Chandler APRN, DELIVERY RECRUITER Primary Care Provider Reason for Visit Reason Comments Routine Eye Exam Encounter Details Date Type Department Care Team Description 12/21/2021 Office Visit [facility] Yazmin Bermudez, Visit for eye and vision claude castro (Primary Dx); [address] OD, FAAO Regular astigmatism of left eye; [address] [place] [address] [phone] (Wo rk) Social History Tobacco Use Types Packs/Day Years Used Date Smoking Tobacco: Never Smokeless Tobacco: Never Sex Assigned at Date Recorded Not on file documented as of this encounter Progress Notes Yazmin Bermudez, OD, FAAO - 12/21/2021 7:20 AM CDT HPI TIAN 5 yrs; Glasses are broken Pt states he has noticed blurry DVA and NVA OU with his glasses on; Pt denies floaters or flashes; Pt denies dryness or discomfort; No AT;s Last edited by Lisa Roberts, COA on 12/21/2021 7:16 AM. (History) Pt denies any new floaters, any flashes, or any veil/curtain over vision Pt dilated & advised to only perform activities that she/he feels safe performing while dilated.Pt advised to wear sunglasses (and offered the plastic sunglasses in office) Assessment and Plan Encounter Diagnoses Name Primary? Regular astigmatism of left eye Spectacle prescription given to pt. ??? Myopia of both eyes ??? Ocular health normal ou Monitor at routine exams Return to clinic in 1-2 year(s) for routine CEE or sooner prn. Yazmin Bermudez, ROMEL, JAYDA 12/21/2021, 7:54 AM documented in this encounter Plan of Treatment Not on filedocumented as of this encounter Visit Diagnoses Diagnosis Visit for eye and vision exam - Primary Examination of eyes and vision Regular astigmatism of left eye Regular astigmatism Myopia of both eyes Myopia documented in this encounter Care Teams Clinical Cytogenetics Director Relationship Specialty Start Date End Date Merari Chandler, OPERATING ROOM SURGICAL TECHNICIAN, DELIVERY RECRUITER PCP - General 11/30/11 [facility] [place] [address] documented as of this encounter
--- OUTSIDE RECORDS SUMMARY | 2022-05-06 17:43 | XMS_ITS | Encounter Summary ---
:1999 Author Organization [employer] Address [address] [address] Care Team Providers Name Role Phone Merari Chandler APRN, CNP Primary Care Provider Reason for Visit Reason Comments Refill Encounter Details Date Type Department Care Team Description 03/27/2013 Refill [facility] [address] Merari Chandler, Refill Pediatrics BERNARDO WATTS [address] [place] [address] [place], [place] [phone] (Wo rk) Social History Tobacco Use Types Packs/Day Years Used Date Smoking Tobacco: Never Assessed Sex Assigned at Date Recorded Not on file documented as of this encounter Nursing Notes Nallely Leonard RN - 03/27/2013 12:33 PM CDT Has not yet gotten established with psych in [facility]. needs a refill . Last saw some one at [facility] late last winter . Approveed for SSI and ordered to to see psychiatrist . Patient states med not helping but all teachers and parents seem to think it is helping . Is currently taking Zoloft 25 mg . Needs a refill [facility] at [phone] May we refill ? Robert Phelan - 03/27/2013 12:28 PM CDT The patient called requesting a call from a nurse regarding a refill of Zoloft The patient states the pharmacy has indicated that there are no refills for this medication. The patient states they are almost out of the medication. The patient was advised that it usually takes 48 hours for medication refills. The pharmacy information has been verified. documented in this encounter Plan of Treatment Not on filedocumented as of this encounter Visit Diagnoses Not on filedocumented in this encounter Care Teams Small Order Cutter Relationship Specialty Start Date End Date Merari Chandler APRN, FRENCH EDGE OPERATOR PCP - General 11/30/11 [facility] [place] [phone] documented as of this encounter
--- OUTSIDE RECORDS SUMMARY | 2022-05-06 17:44 | XMS_ITS | Encounter Summary ---
:1999 Author Organization [facility] Address [address] [address] Care Team Providers Name Role Phone Gil Yuan MD Primary Care Provider Reason for Visit Reason Comments Other Encounter Details Date Type Department Care Team Description 02/23/2008 Telephone [facility] [address] P ediatrics [place], Message Other [address] [place], [place] [id number] Social History Tobacco Use Types Packs/Day Years Used Date Smoking Tobacco: Never Assessed Sex Assigned at Date Recorded Not on file documented as of this encounter [facility], Message - 02/23/2008 11:46 AM CDT Phone Note filed by [employer] at 11/19/10201 Author: [employer] Service: (none) Author Type: (none) Filed: 11/19/10201 Note Time: 02/23/08 1146 Status: Signed Layer Off: [employer] Front Line Sx Call Caller Name/Relationship: Aiyana-mother Primary Slider Assembler: Kwabena Symptom or request? Pt has a rash over her body Is appointment scheduled & when? n Alumni Coordinator: same Best call back number: [phone] Is it OK to leave a confidential message on this voicemail? y *ECODE~PNSX2 Created on 23Feb2008 11:46am by SUHAS HOSKINS On 23Feb2008 11:51am CHASITY WILLIAM wrote: CLINICIAN FOLLOW-UP: None IMPRESSION: Rashes, Localized and Cause Unknown. SYMPTOMS: Rash on trunk spreading to face. Fever for couple of days. Afebrile today. Feels fine. Takes no meds no new products or foods. Mom not clear about sx of rash Denies emergent symptoms PATIENT INFORMATION: Problem List: reviewed in LastWord CARE ADVICE: Rash home management per Dr Johnny florez Advised to call back if any of the following occur: symptoms worsen or persist, any other questions or concerns. PLAN: HOME CARE Patient/Caller agrees with plan and denies additional questions. Reference(s) Used: Pediatric Telephone Protocols-- Rashes, Localized and Cause Unknown. Call Complete. *~PNNL~PEDSCHOLAR~ ER ASSEMBLER documented in this encounter Plan of Treatment Not on filedocumented as of this encounter Visit Diagnoses Not on filedocumented in this encounter Care Teams Sr. Director Product Management Relationship Specialty Start Date End Date Gil Yuan MD PCP - General 11/03/10 11/29/11 [address] [place] [address] documented as of this encounter
--- OUTSIDE RECORDS SUMMARY | 2022-05-06 17:44 | XMS_ITS | Encounter Summary ---
:1999 Author Organization [facility] Address [address] [address] Care Team Providers Name Role Phone Gil Yuan MD Primary Care Provider Reason for Visit Reason Comments Other Encounter Details Date Type Department Care Team Description 07/10/2008 Telephone [facility] Babita Thorne Other [address] [place] [address] Social History Tobacco Use Types Packs/Day Years Used Date Smoking Tobacco: Never Assessed Sex Assigned at Date Recorded Not on file documented as of this encounter Progress Notes [facility], Message - 07/10/2008 2:17 PM CST Phone Note filed by [employer] at 11/19/10 1240 Author: [employer] Service: (none) Author Type: (none) Filed: 11/19/10 1240 Note Time: 07/10/08 1417 Status: Signed Audio Production Engineer: [employer] Front Line Sx Call Caller Name/Relationship:Melissa /Manuel Mata- [facility] Nurse Primary Monitoring Manager:Dr Yuan Symptom or request?hives-new onset Is appointment scheduled & when?no Regulatory Affairs Internship:Melissa/School Nurse Best call back number:[phone] Is it OK to leave a confidential message on this voicemail?yes *ECODE~PNSX2 Created on 10Jul2008 2:17pm by DARIA CRISTINA On 10Jul2008 2:33pm BABITA THORNE wrote: CLINICIAN FOLLOW-UP: none IMPRESSION: Hives (Urticaria). SYMPTOMS: School nurse calling. Mick was sent to office with hives to trunk, back, arms, legs. Mildly itchy in a few spots. No known allergens or new products. Aunt (guardian) on way to pick him up. Afebrile, no viral symptoms. Asthma currently controlled. No other symptoms. Denies emergent symptoms Problem List: reviewed in electronic medical record. CARE ADVICE: Care Advice LOCALIZED HIVES: For localized hives, wash the allergic substance off the skin with soap and water. If itchy, massage the area with a cold pack or ice for 20 minutes. Localized hives usually disappear in a few hours and don't need Benadryl. BENADRYL FOR WIDESPREAD HIVES: Give Benadryl 4 times per day for widespread hives that itch. See Dosage chart. If you only have another antihistamine at home (but not Benadryl), use that. Continue the Benadryl 4 times per day until the hives are gone for 12 hours. Contraindication: Age < 1 year. (Reason: Benadryl is a sedative). -EXCEPTION: For widespread hives that are itchy, infants 6 to 12 months old can receive 1/2 tsp (2 ml) of Benadryl for 2 dosages. FOOD-RELATED HIVES: - Foods can cause widespread hives. - Sometimes the hives are isolated to just around the mouth. - Hives from foods usually are transient and gone in < 6 hours. COOL BATH: Give a cool bath for 10 minutes to relieve itching. (Caution: avoid causing a chill) Rub very itchy areas with an ice cube for 10 minutes. REMOVE ALLERGENS: Give a bath or shower if triggered by pollens or animal contact. Change clothes. AVOID ALLERGENS: If you identify a substance that causes hives (e.g., a food), help your child avoid that substance in the future. CONTAGIOUSNESS: Hives are not contagious. Your child can return to day care or school if the hives do not interfere with normal activities. If the hives are associated with an infection, your child can return to school after the fever is gone and your child feels well enough to participate in normal activities. EXPECTED COURSE: Hives from a viral illness normally come and go for 3 or 4 days, then disappear. Most children get hives once. ANAPHYLAXIS CONCERNS: - Discuss ONLY IF current time is < 2 hours since exposure to a bee sting, drug, high-risk food or other allergic substance. - THEN tell the caller to call 911 immediately for any difficulty breathing or swallowing during the 2 hours following exposure. CALL BACK IF: Severe hives persist after 2nd dose of Benadryl. Most of the itch is not relieved within Advised to call back if any of the following occur: symptoms worsen or persist, any other questions or concerns. PLAN: HOME CARE Patient/Caller agrees with plan and denies additional questions. References Used: Pediatric Telephone Protocols--Hives (Urticaria). Call Complete. *SH~BS~HIVES ~ ER REPAIRER PNEUMATIC documented in this encounter Plan of Treatment Not on filedocumented as of this encounter Visit Diagnoses Not on filedocumented in this encounter Care Teams Leader Writer Relationship Specialty Start Date End Date Gil Yuan MD PCP - General 11/03/10 11/29/11 [address] [place] [address] documented as of this encounter
--- OUTSIDE RECORDS SUMMARY | 2022-05-06 17:44 | XMS_ITS | Encounter Summary ---
:1999 Author Organization [facility] Address [address], [place] [address] Care Team Providers Name Role Phone Gil Yuan MD Primary Care Provider Reason for Visit Reason Comments Other Encounter Details Date Type Department Care Team Description 04/17/2009 Telephone [facility] [address] ediatric[address] [place], Message Other [address] [place], [place] [id number] Social History Tobacco Use Types Packs/Day Years Used Date Smoking Tobacco: Never Assessed Sex Assigned at Date Recorded Not on file documented as of this encounter Progress Notes Center, Message - 04/17/2009 9:52 AM CDT Phone Note filed by [employer] at 11/20/10 0485 Author: [employer] Service: (none) Author Type: (none) Filed: 11/20/10 4555 Note Time: 04/17/09951 Status: Signed Oral And Maxillofacial Surgeon: Ze[employer] (Resource) Medication Issue/Refill Caller Name/Relationship: mother Aiyana Primary Land Leveler: Kwabena Patient has contacted Pharmacy (yes/no): yes Comments: pharmacy never received prescription please resubmit Pharmacy Name & Phone #: [facility] [phone] or City: [address] [place] [address] so Erlinda Drug Name: inhaler does not know name Strength: n a Dose/Route/Freq:na Arc Trimmer: Aiyana Best call back number: [phone] celll Is it OK to leave a confidential message on this voicemail? y Created on 17Apr2009 9:52am by EUFEMIA WARNER On 17Apr2009 10:04am ELMIRA WALLACE wrote: Can we refill the inhaler ? On 17Apr2009 10:09am MAUREEN LAGUNAS wrote: Ok to refill inhaler Acknowledged by MAUREEN LAGUNAS on 10:09am On 17Apr2009 11:07am ELMIRA WALLACE wrote: script called to the pharmacy RING MECHANIC documented in this encounter Plan of Treatment Not on filedocumented as of this encounter Visit Diagnoses Not on filedocumented in this encounter Care Teams Life Insurance Salesperson Relationship Specialty Start Date End Date Gil Yuan MD PCP - General 11/03/10 11/29/11 [address] [place] [address] documented as of this encounter
--- OUTSIDE RECORDS SUMMARY | 2022-05-06 17:44 | XMS_ITS | Encounter Summary ---
:1999 Author Organization [facility] Address [address] [address] Care Team Providers Name Role Phone Gil Yuan MD Primary Care Provider Encounter Details Date Type Department Care Team Description 12/03/2008 Office Visit [facility] [address] Gil Yuan MD Pediatrics [address] [facility] [address] [place] [address] [place], [place] [id number] [phone] Social History Tobacco Use Types Packs/Day Years Used Date Smoking Tobacco: Never Assessed Sex Assigned at Date Recorded Not on file documented as of this encounter Last Filed Vital Signs Vital Sign Reading Time Taken Comments Blood Pressure - - Pulse - - Temperature - - Respiratory Rate - - Oxygen Saturation - - Inhaled Oxygen Concentration - - Weight 30.4 kg (67 lb) 12/03/2008 11:06 AM CDT C: 30.4k g Height - - Body Mass Index - - documented in this encounter Progress Notes Gil Yuan MD - 12/03/2008 12:01 AM CDT Progress Notes signed by Gil Yuan MD at 12/03/08 1663 Author: Gil Yuan MD Service: (none) Author Type: Physician Filed: 11/21/10 1305 Note Time: 12/03/08 0001 Status: Signed Glass Sander: Gil Yuan MD (Physician) Acute Clinic Visit IMPRESSION: Reactive Airways. SUBJECTIVE: History of Present Illness: Accompanied By: Guardian. Since September has been getting short of breath, wheezing and coughing at recess. Mick, who goes by the name Jake, thinks it has to do with the rubber mat that is under the playground. GOes to the nurse's office and gets Albuterol which helps. Never used the Flovent that was prescribed in 2006. Aunt (who is his legal guardian) also thinks stress at school may be contributing. Aunt is in the process of legally adopting Jake. Recently found out biologic dad does have asthma. Symptom(s): Afebrile. NO difficulty sleeping. Activity level has remained normal. No rhinorrhea. Cough. Exertional cough. Wheezing. Eating well. No emesis. No diarrhea. Acute Medications Used / Exposures: Bronchodilator. Bronchodilator response: Albuterol helps when he gets it at the nurse's office Past / Family History: ADR's, Medications, and Problem List reviewed and updated today on the Health Profile of [place]. Previously healthy.Online medical records were reviewed by me. OBJECTIVE: Weight: 67 General: well appearing; alert and appropriate. Eyes: no injection or drainage. Ears: canals and tympanic membranes normal bilaterally. Nose: normal nares without drainage. Oropharynx: moist mucus membranes without ulcerations; tonsils symmetric without erythema or exudate. Neck: supple without adenopathy or goiter. Chest: clear to auscultation; normal effort. Cardiac: regular rate without murmur. Abdomen: soft, nontender; no masses. Skin: exam normal. Labs/Studies Done Today No labs done. ASSESSMENT: Reactive Airways/asthma. PLAN: Symptomatic care. Encourage fluids and rest. Acetaminophen, ibuprofen, or other OTC medications only as directed on package. RTC PRN if fevers are difficult to control, poor fluid intake, or progressive worsening of symptoms. Albuterol MDI 2 puffs with spacer TID-QID, or up to q 4 hours PRN until cough resolves. Discussed taking Albuterol 30 minutes prior to exercise or recess. I did ask Jake's aunt to bring him in for a full WCC and full asthma check in 4-6 weeks. At that time will obtain PFTs, create a new asthma action plan and discuss chronic inhaled steroids for prevention. *SH~PC~SUKHWINDER ~ Shorthand Note completed on: 12/03/2008 1:43 PM documented in this encounter Plan of Treatment Not on filedocumented as of this encounter Visit Diagnoses Not on filedocumented in this encounter Care Teams Gis Administrator Relationship Specialty Start Date End Date Gil Yuan MD PCP - General 11/03/10 11/29/11 [address] [place] [address] documented as of this encounter
--- OUTSIDE RECORDS SUMMARY | 2022-05-06 17:44 | XMS_ITS | Encounter Summary ---
:1999 Author Organization [facility] Address [address] [address] Care Team Providers Name Role Phone Gil Yuan MD Primary Care Provider Encounter Details Date Type Department Care Team Description 12/03/2008 PN Conversion Only CARD SELLER [address] [place] [address] Social History Tobacco Use Types Packs/Day Years Used Date Smoking Tobacco: Never Assessed Sex Assigned at Date Recorded Not on file documented as of this encounter Plan of Treatment Not on filedocumented as of this encounter Visit Diagnoses Not on filedocumented in this encounter Care Teams Chief Of Staff Relationship Specialty Start Date End Date Gil Yuan MD PCP - General 11/03/10 11/29/11 [address] [place] [address] documented as of this encounter
--- OUTSIDE RECORDS SUMMARY | 2022-05-06 17:44 | XMS_ITS | Encounter Summary ---
:1999 Author Organization [employer] Address [address], [place] [address] Care Team Providers Name Role Phone Gil Can MD Primary Care Provider Reason for Visit Reason Comments Other Encounter Details Date Type Department Care Team Description 03/05/2009 Telephone [facility] Jonatan Whitlock [facility] [address] [place] [address] Social History Tobacco Use Types Packs/Day Years Used Date Smoking Tobacco: Never Assessed Sex Assigned at Date Recorded Not on file documented as of this encounter Progress Notes Jonatan Whitlock - 03/05/2009 4:38 PM CDT Phone Note filed by Jonatan Whitlock RN at 11/20/10 0852 Author: Jonatan Whitlock RN Service: (none) Author Type: Registered Nurse Filed: 11/20/10 0852 Note Time: 03/05/09 0318 Status: Signed Esters And Emulsifiers Supervisor: Jonatan Whitlock RN (Registered Nurse) TC to Sandra to f/u on referral from Dr. Can due to financial concerns in not purchasing Jake's medication. Sandra stated that she has applied for MA in December and is waiting for approval. Informed her that PN has a yokasta one time one month refill that she could access if interested. Sandra stated she was not interested at this time. Did briefly discuss Medical Home, care coordination and care plans. Stated she has it under control - Jake does have an IEP plus he see a psychologist.Not interested in MH today. Did take my name and phone no. and will call if a need arises. Created on 05Mar2009 4:38pm by JONATAN WHITLOCK On 05Mar2009 4:58pm GIL CAN wrote: Thank you Jonatan! Acknowledged by GIL CAN on 4:58pm Acknowledged by JONATAN WHITLOCK on 9:47am ADJUSTER documented in this encounter Plan of Treatment Not on filedocumented as of this encounter Visit Diagnoses Not on filedocumented in this encounter Care Teams Float Builder Relationship Specialty Start Date End Date Gil Can MD PCP - General 11/03/10 11/29/11 [address] [place] [address] documented as of this encounter
--- OUTSIDE RECORDS SUMMARY | 2022-05-06 17:44 | XMS_ITS | Encounter Summary ---
:1999 Author [facility] Address [address] [address] Care Team Providers Name Role Phone Gil Yuan MD Primary Care Provider Reason for Visit Reason Comments Other Encounter Details Date Type Department Care Team Description 08/07/2007 Telephone [facility] [address] [facility] [place], Message Other [address] [place] [address] Social History Tobacco Use Types Packs/Day Years Used Date Smoking Tobacco: Never Assessed Sex Assigned at Date Recorded Not on file documented as of this encounter Progress Notes Susan Bowden MA - 08/07/2007 11:17 AM CST Phone Note filed by Susan Bowden MA at 11/18/10 1204 Author: Susan Bowden MA Service: (none) Author Type: Scrap Collector Filed: 11/18/10 1206 Note Time: 08/07/07 1117 Status: Signed Sergeant Of Corrections: Susan Bowden MA (Scrap Collector) Prescription Refill Please provide enough refills to last until patient's next visit. Comment:- Pharmacy Seq #:- [phone] Pharmacy Name:- [facility] [phone] or City:- [place] Clinician Name:- Kwabena Drug Name/Strength:- ProAir Inhaler (200 puffs) 8.5gm Sig: Dose/Route/Freq:- Inhale 1-2 Puffs every 4 hrs as needed Quantity & Last Fill:- 25.5 06.10.06 Created on 07Aug2007 11:17am by SUSAN BOWDEN On 07Aug2007 11:19am CHASITY WILLIAM wrote: Refill? On 07Aug2007 11:25am CARLOS SEBASTIAN wrote: we can refill for one ProAir inhaler with one refill. Carlos Shelton Acknowledged by CARLOS SEBASTIAN on 11:25am On 07Aug2007 11:29am CHASITY WILLIAM wrote: proair filled per Dr Sebastian LIFT MULE OPERATOR documented in this encounter Plan of Treatment Not on filedocumented as of this encounter Visit Diagnoses Not on filedocumented in this encounter Care Teams Loan Workout Officer Relationship Specialty Start Date End Date Gil Yuan MD PCP - General 11/03/10 11/29/11 [address] [place] [address] documented as of this encounter
--- OUTSIDE RECORDS SUMMARY | 2022-05-06 17:44 | XMS_ITS | Encounter Summary ---
:1999 Author Organization [employer] Address [address], [place] [address] Care Team Providers Name Role Phone Gil Yuan MD Primary Care Provider Reason for Visit Reason Comments Forms Encounter Details Date Type Department Care Team Description 05/11/[address] [facility] [address] Gil Yuan MD Forms Pediatrics [address] [facility] [address] [place] [address] [place] [address] [phone] Social History Tobacco Use Types Packs/Day Years Used Date Smoking Tobacco: Never Assessed Sex Assigned at Date Recorded Not on file documented as of this encounter Nursing Notes Shana Baez - 05/12/2011 12:38 PM CDT Form completed and faxed Shana Baez - 05/11/2011 11:23 AM CDT Med form needs to be filled out and faxed per MARLENA. Placed in Dr. Martha dejesus. documented in this encounter Plan of Treatment Not on filedocumented as of this encounter Visit Diagnoses Not on filedocumented in this encounter Care Teams Furnace Operator And Tender Relationship Specialty Start Date End Date Gil Yuan MD PCP - General 11/03/10 11/29/11 [address] [address] [address] documented as of this encounter
--- OUTSIDE RECORDS SUMMARY | 2022-05-06 17:44 | XMS_ITS | Encounter Summary ---
:1999 Author [facility] Address [address] [address] Care Team Providers Name Role Phone Gil Yuan MD Primary Care Provider Encounter Details Date Type Department Care Team Description 10/14/2009 PN Conversion Only [facility] [address] [place] [address] Social History Tobacco Use Types Packs/Day Years Used Date Smoking Tobacco: Never Assessed Sex Assigned at Date Recorded Not on file documented as of this encounter Plan of Treatment Not on filedocumented as of this encounter Visit Diagnoses Not on filedocumented in this encounter Care Teams Senior Project Coordinator Relationship Specialty Start Date End Date Gil Yuan MD PCP - General 11/03/10 11/29/11 [address] [place] [address] documented as of this encounter
--- OUTSIDE RECORDS SUMMARY | 2022-05-06 17:44 | XMS_ITS | Encounter Summary ---
:2000 Author Organization [facility] Address [address], [place] [address] Care Team Providers Name Role Phone Gil Yuan MD Primary Care Provider Reason for Visit Reason Comments Other Encounter Details Date Type Department Care Team Description 12/16/2010 Telephone [facility] [address] [facility], Message Other [address] [place], [place] [id number] Social History Tobacco Use Types Packs/Day Years Used Date Smoking Tobacco: Never Assessed Sex Assigned at Date Recorded Not on file documented as of this encounter [facility], Message - 12/16/2010 2:39 PM CDT Phone Note filed by AA Party at 12/22/10 8250 Author: AA Party Service: (none) Author Type: (none) Filed: 12/22/10 7546 Note Time: 12/16/10 1439 Status: Addendum Dredge Deckhand: AA Party (Resource) Related Notes: Original Note by [facility] Herson (Physician) filed at 12/22/10 4910 Form Tracking Name of Caller: Name of Clinician: Kwabena Type of form (i.e. school, camp)? camp Date needed: not stated Mail/Pickup/Fax: fax back to pt's mom Contact for questions: Call Back Phone or Cell Phone: Best time to call back: Is it OK to leave a confidential message on this voicemail? Have you signed a consent form for release of this information? Type ZForm in comment line. Sent to triage to be completed *ECODE~PNFORM Created on 16Dec2010 2:39pm by YANE SINGER On 17Dec2010 11:52am KATLYN LI wrote: Camp form completed and given to for review and signature. On 22Dec2010 12:50pm YANE SINGER wrote: Form completed and faxed OFFICE ASSISTANT documented in this encounter Plan of Treatment Not on filedocumented as of this encounter Visit Diagnoses Not on filedocumented in this encounter Care Teams Seam Stay Stitcher Relationship Specialty Start Date End Date Gil Yuan MD PCP - General 11/03/10 11/29/11 [address] [place] [address] documented as of this encounter
--- OUTSIDE RECORDS SUMMARY | 2022-05-06 17:44 | XMS_ITS | Encounter Summary ---
:2000 Author Organization [facility] Address [address] [address] Care Team Providers Name Role Phone Gil Yuan MD Primary Care Provider Reason for Visit Reason Comments Other Encounter Details Date Type Department Care Team Description 01/05/2011 Telephone [facility] [address], Message Other [address] [place], [place] [id number] Social History Tobacco Use Types Packs/Day Years Used Date Smoking Tobacco: Never Assessed Sex Assigned at Date Recorded Not on file documented as of this encounter [facility], Message - 01/05/2011 11:18 AM CDT Phone Note filed by Beautified at 01/05/11 1235 Author: Beautified Service: (none) Author Type: (none) Filed: 01/05/11 1235 Note Time: 01/05/11 1118 Status: Addendum Rail Splitter: Beautified (Resource) Related Notes: Original Note by [facility] Herson (Physician) filed at 01/05/11 1235 Non -Symptom Message from Front Line Caller Name/Relationship:Aiyana/mom Primary Shiatsu Therapist:Kwabena Message:Patient's form was never recieved at [place]. Could we please fax it again kathleen to [phone]. Any questions, please call mom. Children Counselor:Aiyana Best call back number:[phone] Is it OK to leave a confidential message on this voicemail?lm y *[email or web address]~[email or web address] Created on 05Jan2011 11:18am by YOKO RICHTER On 05Jan2011 11:21am CHASITY WILLIAM wrote: Yane, can you refax this form to camp? see last documentation for camp form On 05Jan2011 12:32pm YANE SINGER wrote: Faxed to new number Acknowledged by YANE SINGER on 12:32pm TENDER documented in this encounter Plan of Treatment Not on filedocumented as of this encounter Visit Diagnoses Not on filedocumented in this encounter Care Teams Unarmed Security Officer Relationship Specialty Start Date End Date Gil Yuan MD PCP - General 11/03/10 11/29/11 [address] [place] [address] documented as of this encounter
--- OUTSIDE RECORDS SUMMARY | 2022-05-06 17:44 | XMS_ITS | Encounter Summary ---
:2000 Author Organization [facility] Address [address] [address] Care Team Providers Name Role Phone Merari Chandler APRN, CNP Primary Care Provider [phone] Reason for Referral Specialty Diagnoses / Procedures Referred By Contact Refer red To Contact Merari Chandler APRN, CNP [address] [place], [place] [phone] Referral ID Status Reason Start Date Expiration Date Visits Requ ested Visits Authorized Reason for Visit Reason Comments WELL CHILD EXAM Encounter Details Date Type Department Care Team Description 11/30/[address] [facility] [address] Merari Chandler child health exam; Pediatrics STEFANIE Rolon CNP Cough variant asthma; [address] allergies; [address] Mental health problem; [place], [place] Ne ed for Tdap vaccination [phone] (Wo rk) Social History Tobacco Use Types Packs/Day Years Used Date Smoking Tobacco: Never Assessed Sex Assigned at Date Recorded Not on file documented as of this encounter Last Filed Vital Signs Vital Sign Reading Time Taken Comments Blood Pressure 112/74 11/30/2011 9:26 AM CDT Pulse - - Temperature - - Respiratory Rate - - Oxygen Saturation - - Inhaled Oxygen Concentration - - Weight 41.7 kg (92 lb) 11/30/2011 9:26 AM CDT Height 149.2 cm (4' 10.75) 11/30/2011 9:26 AM CDT Body Mass Index 18.74 11/30/2011 9:26 AM CDT Body Mass Index Percentile 65.32 % 11/30/2011 9:26 AM CD T Growth Chart: [facility] (Boys, 2-20 Years) documented in this encounter Patient Instructions Patient InstructionsCherelle Beckett MA - 11/30/2011 10:04 AM CDT School Age Years (11 to 13 years) Next visit: 14 to 16 years of age Measurements Weight: 92 lb (39507 g) (58.08%) Length: 4' 10.75 (149.2 cm) (53.55%) Blood pressure: 112/74 BMI: Body mass index is 18.74 kg/(m^2). For after-hours assistance, call your local clinic and ask for pediatric urgent care or an availablenurse. Nutrition Maintain frequent family meals to preserve family time. Use healthy snacks to complement meals. Each snack should include at least 2 food groups. Enjoy low-fat milk, cheese, yogurt, fruits, vegetables and whole grains. Limit high-fat or low-nutrient foods, such as candy, chips and soda. Avoid high-fat lunches. In place of chips and sweets, substitute pretzels, popcorn, dry cereals andfruit. Physical activity Encourage at least 60 minutes a day of physical activity. Do not allow your child to have a TV or computer in his or her bedroom. Be a role model for your child by living a healthy lifestyle. Limit screen time to no more than two hours a day of quality children???s programming, including TV, DVDs, video games and computer time. Carefully monitor television programs, video game content, Internet use, and the Web sites your child is visiting. Do not allow your child to have a TV or computer in his or her bedroom. Be a role model for your child by living a healthy lifestyle. Social and emotional health Social acceptance is especially important at this age. Talk to your child about school, friends andfeelings. Your child might face peer pressure to use alcohol, tobacco products and drugs, and to have sex. Support your child's participation in activities that provide positive experiences. Spend time as a family doing activities you all enjoy. Set family rules for curfews, TV watching and chores. Enforce consequences for unacceptable behavior. Limit criticism and nagging. Do not allow teasing or put-downs. Eating problems sometimes start at this age. Help your child recognize that his or her body is beautiful, no matter what its shape, size or color. If you are worried that your child may have an eatingdisorder, contact [address] [facility] at [phone]. Provide positive expressions of love, concern and pride to promote self-esteem and a sense of belonging to the family. Children who feel good about themselves are more able to resist negative peer pressure and make better choices for themselves. Be alert to signs of depression, such as a sudden change in behavior or friends, lack of interest in friendship and self-injuring behavior (for example, cutting). Cognitive development and school performance Your child should attempt to get 9 hours of sleep at night. Regular attendance at school is important. Set a regular time and place to do homework. The room should be quiet and free from distractions, such as TV, music or videos. Stay involved with school assignments and progress by attending conferences and talking with teachers when necessary. Encourage increased independence in organization and time management. Praise positive efforts. Sexuality Respect your child's need for privacy. Be a role model for mutual respect in the family. Provide your child with accurate information about his or her sexuality, menstruation, wt dreams and sexual feelings and responses. Teach facts about and sexually transmitted diseases. Safety For safe behavior, make and enforce consistent, clear and firm rules. Talk to your child about your expectations regarding clothes, friends, media, activities, drugs anddrinking. Talk to your child about the risks of drug use and how to say no. Teach safe swimming and diving practices. Reinforce sports safety with your child. Make sure he or she uses appropriate safety equipment. Your child should wear a helmet when riding a bike, in-line skating (rollerblading), skateboarding,snowboarding, skiing and riding a scooter. When children ar old and large enough to joe the vehicle seat belt alone, they should always use lap and shoulder seat belts for best protection. All children younger than 13 years should sit in the rear seats of vehicles. Visit www.Cosmotourist.stat.min.us for more information on car seat safety. Make sure that guns are locked up and ammunition is stored separately. Use a trigger lock. Install a smoke alarm on each level of your home, outside each sleeping area and inside each bedroom. Test your smoke alarms and carbon monoxide detectors monthly. Replace batteries at least once a year or when a low-battery alarm chirps. Children should avoid playing outdoors during dusk. If they ar outside, they should wear light colored clothing to prevent mosquito bites. Use insect repellents that contain 30 percent or less DEET. Avoid using on your child's face and hands. Put SPF 15 or higher sunscreen on 30 minutes before your child goes outside. Reapply sunscreen every 2 to 4 hours, or after each time your child has been in the water or sweating. Keep poisons locked up. In the case of accidental poison ingestion, call Poison Control at . Dental care Encourage brushing and flossing twice a day and make sure your child follows through. Schedule dental visits every six months and talk with your dentist about dental sealants. Pediatric Web site information Visit the [employer] Website at www.aap.org. [facility] www.Spire documented in this encounter Progress Notes Merari Chandler, METAL BENDING MACHINE OPERATOR, COURT BAILIFF OR SHERIFF - 12/02/2011 11:28 AM CDT Well Child/Adolescent Visit or Sports Physical IMPRESSION: 10 Year Old Well child visit. Mild Intermittent Asthma Mental Health Issues Seasonal Allergies Demographics: Accompanied by Aunt who has legal guardianship Patient is 10 years old. Patient is in sixth grade of school. [employer] [facility] Interval History: Sees psychiatrist Q Month for depression/anxiety. Started Zoloft 01/09 and ? helping. Has appt again soon. Had meltdown last summer as he got fed up with being Bullied. Ended up in day treatment. He is at the end of having IEP as he has had for the last 3 years. Pushing him out of school he is in. His assessment done late. He is too late now to transition to new school as their program is full. Has some mild Asthma. Triggers exercise. Going to Asthma camp this summer. Having a lot of nasal congestion and drippy nose for the last 3 months that has been pretty constant. Seems to have mild symptoms this time of year. Currently using no meds for allergies Nutrition: Eats 3 meals per day with a varied diet. Adequate milk intake. Sleep: No concerns about sleep habits. Has good sleep habits. Emotional/Social: (PSC) Pediatric Symptom Checklist was administered. Concerns were identified. The child obtained a score of 5/4/4 on the PSC. Social Interaction: Social issues with fitting in with other kids Dental: Child has visited a dental health professional in the last year. Child is brushing teeth on a daily basis. School / Activities: School: Other school issues and plans: Was getting A/B last trimester now B/C's this trimester. Activity: Sedentary with little regular activity. Past History: Past History: Allergies, Medications, and Problem List reviewed and updated today in the Electronic Medical Record. Social / Family History: Family: Single parent. Mom (technical sales director) Daryl lived [place] streets for several years. Not in contact. Biological Dad in [place] (technical sales director) little contact with Mick. Mom's family not helped her out with Mick. During all the court battles with Mick and Aunt getting custody, her sister (Mick's mom) and her mental health, Maternal Gdma early of MS and Maternal Gdfa has not talked to them in 3 years until just recently. Financial issues for aunt as well Safety: Wearing seatbelts consistently. PHYSICAL EXAM: (See online scanned documents for percentile graphs) Current Weight: 92.25 lbs. / 41.9kg. Current Height: 58.75 inches Current BMI: 18.8 Kg/meters squared Blood Pressure: 112/74 General Appearance: Alert, comfortable. HEENT: Canals/TM's normal, conjunctivae non-injected, sclerae anicteric, no strabismus, oral mucosa moist without lesions. Neck: Supple, no mass or goiter. Chest: Clear with normal effort. CV: Regular rate w/o murmur, pulses normal to palpation. Abdomen: Soft, nontender without hepatosplenomegaly or masses. Extremities: Full range of motion without abnormality.Neuro: Normal tone and symmetric reflexes. Spine: Grossly normal. Skin: No abnormal rash. NO swollen or boggy turbinates Weight: Appears proportional to height. Genitalia & Pubic Hair: Cb stage 1. Vision / Hearing: Vision Testing: Normal for age in each eye. Wore glasses Audiogram: Audiogram normal at all frequencies in each ear. Spirometry: FVC 123% FEV1 114% FEV1/FVC 93% ASSESSMENT: 10 Year Old Well child visit. Mild Intermittent Asthma Mental Health Issues Seasonal Allergies PLAN: Immunizations: Tdap vaccine given. Need to obtain vaccine records from school to see what else is needed for vaccines. Incomplete records. Prior to signing dictation. School records show he needs #2 Varicella. My nurse to call Aunt to RTC for vaccine booster Sports Clearance: Cleared for all sports activities. General Counseling: Anticipatory Guidance Handout given and discussed where appropriate. Anticipatory Reminders: Nutrition: Make reasonable food choices. Safety: Wear helmets when biking, roller blading, or skateboarding. Wear seatbelts whenever in vehicle. Social: Limit television time. Working on. Follow Up: In two years for C. Discussed having our MH Coordinator Johanna talk to them about school issues. Aunt interested in program. Asthma/Allergies Yearly f/u with Asthma. Currently in good control with spirometry reading. Start Claritin daily to see if helpful for allergies Wears glasses. Yearly eye exam recommended. Phone number given to our Eye Dept for yearly visits *SH~PC~WSP ~ Shorthand Note completed on: 11/30/2011 3:23 PM documented in this encounter Plan of Treatment Not on filedocumented as of this encounter Visit Diagnoses Diagnosis Routine child health exam Routine infant or child health check Cough variant asthma (HRC) Cough variant asthma Seasonal allergies Allergic rhinitis, cause unspecified Mental health problem (HRC) Unspecified mental or behavioral problem Need for Tdap vaccination Need for prophylactic vaccination with c ombined fbafuihazq-lfjxbmz-vehhebqrk (DTP) vaccine documented in this encounter Care Teams Booth Manager Relationship Specialty Start Date End Date Merari Chandler APRN, BERNARDO PCP - General 11/30/11 [address] [place] [phone] documented as of this encounter
--- OUTSIDE RECORDS SUMMARY | 2022-05-06 17:44 | XMS_ITS | Encounter Summary ---
:2000 Author Organization [facility] Address [address], [place] [address] Care Team Providers Name Role Phone Merari Chandler APRN, BERNARDO Primary Care Provider [phone] Reason for Visit Reason Comments [facility] Enrollment Encounter Details Date Type Department Care Team Description 11/30/[address] [facility] [address] [facility] asthma; Pediatrics Depression [address] [place], [place] [id number] Social History Tobacco Use Types Packs/Day Years Used Date Smoking Tobacco: Never Assessed Sex Assigned at Date Recorded Not on file documented as of this encounter Progress Notes Johanna Rodriguez APRN, BERNARDO - 12/03/2011 10:48 AM CDT [facility] Initial Enrollment: Referred by: Merari Chandler Diagnosis: Depression, Anxiety, Asthma Discussion: I explained [facility] program, benefits, home care companion responsibilities. [facility] folder given. Enrollment: yes/verbal consent given Plan: Family will complete and return care plan questionnaire. Begin care coordination services. Aiyana (guardian) called 12/03/11 to remind of immunization due to update. She was not pleased that this could not have been taken care of during this visit. Transportation is a major barrier. Will carlo get immunizations updated when she can but it probably won't be anytime soon. I also mailed home well visit dictation as Aunt needed that for camp. Aunt will keep me updated on school changes as they come about this Spring. documented in this encounter Plan of Treatment Not on filedocumented as of this encounter Visit Diagnoses Diagnosis Cough variant asthma (HRC) Cough variant asthma Depression Depressive disorder, not elsewhere class ified documented in this encounter Care Teams Motor And Chassis Inspector Relationship Specialty Start Date End Date Merari Chandler APRN, POWER TRANSFORMER INSPECTOR PCP - General 11/30/11 [address] [place] [phone] documented as of this encounter
--- OUTSIDE RECORDS SUMMARY | 2022-05-06 17:44 | XMS_ITS | Encounter Summary ---
:2000 Author Organization [facility] Address [address], [place] [address] Care Team Providers Name Role Phone Merari Chandler APRN, CNP Primary Care Provider [phone] Reason for Visit Reason Comments Forms Encounter Details Date Type Department Care Team Description 01/21/2012 Telephone [facility] [address] Merari Chandler, Forms Pediatrics BERNARDO WATTS [address] [place] [address] [place], [place] [phone] (Wo rk) Social History Tobacco Use Types Packs/Day Years Used Date Smoking Tobacco: Never Assessed Sex Assigned at Date Recorded Not on file documented as of this encounter Nursing Notes Shana Baez - 01/25/2012 4:12 PM CDT Form completed and mailed home Johanna Rodriguez APRN, CNP - 01/25/2012 3:57 PM CDT Put in SL box last Tuesday, I haven't seen back yet. Shana Baez - 01/25/2012 3:39 PM CDT Johanna, do you know if this was completed yet? Thanks! Johanna Rodriguez APRN, BERNARDO - 01/21/2012 2:04 PM CDT I returned a call to Rosie at [facility] regarding [facility] form. Apparently this needs to be completed today, I informed her due to late notice and only one provider scheduled today, I am unable to guarantee this, but will certainly try. After further looking at form, it appears there is no signed MARLENA allowing form to go directly to [facility]p[employer]. I will complete form and mail home. I spoke with Aiyana (legal guardian) and indicated that without MARLENA, we cannot give directly to [facility]. Will be mailed home, copy to scan doc when complete. documented in this encounter Plan of Treatment Not on filedocumented as of this encounter Visit Diagnoses Not on filedocumented in this encounter Care Teams Childbirth And Infant Care Teacher Relationship Specialty Start Date End Date Merari Chandler APRN, COMPENSATION AND BENEFITS MANAGER PCP - General 11/30/11 [address] [place] [phone] documented as of this encounter
--- OUTSIDE RECORDS SUMMARY | 2022-05-06 17:44 | XMS_ITS | Encounter Summary ---
:2000 Author Organization [facility] Address [address], [place] [address] Care Team Providers Name Role Phone Gil Yuan MD Primary Care Provider Encounter Details Date Type Department Care Team Description 12/29/2007 PN Conversion Only BUDDHISM CONVERSION Social History Tobacco Use Types Packs/Day Years Used Date Smoking Tobacco: Never Assessed Sex Assigned at Date Recorded Not on file documented as of this encounter Plan of Treatment Not on filedocumented as of this encounter Visit Diagnoses Not on filedocumented in this encounter Care Teams Level Vial Inside Grinder Relationship Specialty Start Date End Date Gil Yuan MD PCP - General 11/03/10 11/29/11 [address] [place] [address] documented as of this encounter
--- OUTSIDE RECORDS SUMMARY | 2022-05-06 17:44 | XMS_ITS | Encounter Summary ---
:2000 [facility] Address [address] [address] Care Team Providers Name Role Phone Gil Can MD Primary Care Provider Encounter Details Date Type Department Care Team Description 05/17/2006 Office Visit [facility] 3850 Gil Can MD Pediatrics [address] [facility] [address] [place] [address] [facility] [place] [address] [place], [place] [id number] [phone] Social History Tobacco Use Types Packs/Day Years Used Date Smoking Tobacco: Never Assessed Sex Assigned at Date Recorded Not on file documented as of this encounter Last Filed Vital Signs Vital Sign Reading Time Taken Comments Blood Pressure - - Pulse 107 05/17/2006 2:29 PM CDT Temperature 37.2 ??C (99 ??F) 05/17/2006 2:29 PM CDT C: 37.2 C Respiratory Rate - - Oxygen Saturation 97% 05/17/2006 2:29 PM CDT Inhaled Oxygen Concentration - - Weight 20.4 kg (44 lb 15.9 oz) 05/17/2006 2:29 PM CDT C : 20.4kg Height - - Body Mass Index - - documented in this encounter Progress Notes Gil Can MD - 05/17/2006 12:01 AM CDT Progress Notes signed by Gil Can MD at 05/18/06 7102 Author: Gil Can MD Service: (none) Author Type: Physician Filed: 11/20/10 1503 Note Time: 05/17/06 0001 Status: Signed Soaping Machine Back Tender: Gil Can MD (Physician) NAME: MICK DEE MR: [id number] ACCT: [id number] VISIT: [id number] DICTATING CLINICIAN: GIL CAN MD JOB: [id number] LOC: 403 CLINIC PROGRESS NOTE DATE OF VISIT: 05/17/2006 SUBJECTIVE: : 2000. Mick, who goes by the name of Jake, is a 5-year-old new patient to our clinic who is brought in by his maternal aunt today. His aunt Sandra is currently his legal guardian. His mother has a history of mental illness and possible schizophrenia. Mother has asked Jake's aunt to care for him while she is not feeling well. Jake has been with his aunt now for the past couple of weeks. Previously was living in [place] with his mother and her partner Nellie. Aunt Sandra's concerns today are that Jake has been coughing a lot at night. When he was in kindergarten last year, the elementary esl teacher had some concerns about asthma. The mother did not pursue this possibility. He has never been treated for asthma. Last week did have an upper respiratory infection, but seemed to recover from that fairly well. However, his cough did worsen. Does not seem to have much of a cough during the day. His aunt felt like he was wheezing a few times last week. Also concerned about potential allergies that have been present since returning to [place]. He is sleeping with his aunt's pet dog. Aunt has tried giving him some fpiq-bzn-cjerbae Claritin and has seen a little bit of relief. No smokers here in [place], but mom and mom's partner do smoke. No fevers. No complaints of shortness of breath. When I asked Jake about his past history, he says in the past his chest has hurt with breathing, but not since living with his aunt Sandra. A second concern today is that Jake has had a tough time dealing with the fact that he is now living with his aunt. He had mentioned to his aunt at one point in time that he feels like killing himself because he has been abandoned. Aunt is not sure where he heard that statement as it is fairly unusual for a 5-year-old to make. Has not said anything about hurting himself at any other time. Says he is sad when he thinks about his mom. Of note is that he misses his mom, but does not miss her partner Nellie that much. Has never had any counseling or problems with depression himself. OBJECTIVE: VS: T: 98.9 degrees. Wt: 45 lb. Pulse ox 97% on room air. GENERAL: A well appearing male child in no acute distress with appropriate affect. HEENT: Within normal limits. Mucous membranes are moist. Nasopharynx is clear. CARDIOVASCULAR, RESPIRATIONS, ABDOMEN, EXTREMITIES: Within normal limits. ASSESSMENT: Likely cough-variant asthma. PLAN: Discussed an asthma diagnosis with his aunt Sandra, as well as manifestations of reactive airways disease. Will start him on a trial of albuterol. Inhaler techniques discussed and demonstrated by the nursing staff. Aunt will call back in a few days if she feels that Jake is unable to master the technique of the inhaler with the AeroChamber. If he is having difficulty will prescribe a nebulizer and an albuterol nebulization solution. Should give the albuterol when acutely coughing or before bed q.4 p.r.n. In addition, can continue the Claritin that seems to help with the dog and possible allergy. Will also stop sleeping with the dog if possible. Followup in one month to discuss the effectiveness of the clinical trial and albuterol. May consider putting him on Singulair for allergy and chronic asthma therapy, as well as continuing albuterol p.r.n. if it seems to be effective in helping his cough. As far as his social situation and mental health go, did give auntonja Flores the numbers for [facility] and mental health. I do believe he will benefit from counseling. Discussed at fair length with Jake what he is to do if he is feeling sad. He denies wanting to hurt himself. Says he can talk to his aunt if he is feeling sad. ADS:[id number] C: 05/18/06 13:11 DOCUMENT: [id number] documented in this encounter Plan of Treatment Not on filedocumented as of this encounter Visit Diagnoses Not on filedocumented in this encounter Care Teams Food Science Technician Relationship Specialty Start Date End Date Gil Can MD PCP - General 11/03/10 11/29/11 [address] [place] [address] documented as of this encounter
--- OUTSIDE RECORDS SUMMARY | 2022-05-06 17:44 | XMS_ITS | Encounter Summary ---
:2000 Author Organization [facility] Address [address] [address] Care Team Providers Name Role Phone Gil Yuan MD Primary Care Provider Reason for Visit Reason Comments Other Encounter Details Date Type Department Care Team Description 05/11/2010 Telephone [facility] 3850 P ediatrics [place], Message Other [address] [place] [address] Social History Tobacco Use Types Packs/Day Years Used Date Smoking Tobacco: Never Assessed Sex Assigned at Date Recorded Not on file documented as of this encounter Progress Notes Lanre Hebert - 05/11/2010 9:59 AM CDT Phone Note filed by Lanre Hebert at 11/21/102011 Author: Lanre Hebert Service: (none) Author Type: (none) Filed: 11/21/102011 Note Time: 05/11/10958 Status: Signed Executive Director: Renetta Bains (Physician) Front Line Sx Call Caller Name/Relationship:Aiyana/arturo Primary Graduating Machine Operator:Dr Yuan Symptom or request?needa workin some growths on chin and face and body. Needs to be seen today pt is home from school today. Is appointment scheduled & when?n a Teletypesetter Monitor:Aiyana/Mom Best call back number:[phone] c Pharmacy Name:[facility] Is it OK to leave a confidential message on this voicemail?vm y *ECODE~PNSX2 Created on 11May2010 9:59am by LANRE HEBERT On 11May2010 10:19am KATLYN LI wrote: CLINICIAN FOLLOW-UP: None IMPRESSION: Skin growths; enuresis SYMPTOMS: Growths on face for last couple of months, today has growth's on trunk and arms, small, ones on face are white, ones on his body are red, there are a lot per patient. Usually 15-20 on his face.Mom also wants to talk to about bedwetting issues, still happening, wants to do something about it, wondering if this is related to skin problems? Denies emergent symptoms PATIENT INFORMATION: Problem List: reviewed in LastWord --- Allergies: Reviewed/updated in LastWord --- Medications: Reviewed/updated in LastWord CARE ADVICE: To come in to be seen. Advised to call back if any of the following occur: symptoms worsen or persist, any other questions or concerns. PLAN: SCHEDULE APPOINTMENT WITHIN 48 HOURS Patient/Caller agrees with plan and denies additional questions. Reference(s) Used: Pediatric Telephone Protocols-- Call Complete. *SH~PNNL~PEDSCHOLAR~ TRICAL ENGINEERING DESIGNER documented in this encounter Plan of Treatment Not on filedocumented as of this encounter Visit Diagnoses Not on filedocumented in this encounter Care Teams Windows Technical Specialist Relationship Specialty Start Date End Date Gil Yuan MD PCP - General 11/03/10 11/29/11 [address] [place] [address] documented as of this encounter
--- OUTSIDE RECORDS SUMMARY | 2022-05-06 17:44 | XMS_ITS | Encounter Summary ---
:2000 [facility] Address [address], [place] [address] Care Team Providers Name Role Phone Gil Yuan MD Primary Care Provider Encounter Details Date Type Department Care Team Description 08/29/[address] [facility] 38[address] Urgent Ami Yeung MD Care [address] [facility] [address] [place] [address] [place], [place] [address] [phone] Social History Tobacco Use Types Packs/Day Years Used Date Smoking Tobacco: Never Assessed Sex Assigned at Date Recorded Not on file documented as of this encounter Last Filed Vital Signs Vital Sign Reading Time Taken Comments Blood Pressure - - Pulse 92 08/29/2006 8:07 AM DOOR HANGER Temperature 36.8 ??C (98.2 ??F) 08/29/2006 8:07 AM ORAL C: 3 6.8 C DOOR HANGER Respiratory Rate 20 08/29/2006 8:07 AM DOOR HANGER Oxygen Saturation - - Inhaled Oxygen Concentration - - Weight 21.4 kg (47 lb 3.9 oz) 08/29/2006 8:07 AM C: 21. 4kg DOOR HANGER Height - - Body Mass Index - - documented in this encounter Progress Notes Ami Yeung MD - 08/29/2006 12:01 AM CST Progress Notes signed by Ami Yeung MD at 10/06/06 1119 Author: Ami Yeung MD Service: (none) Author Type: Physician Filed: 11/20/10 1709 Note Time: 08/29/062011 Status: Signed Assembly Hand: Ami Yeung MD (Physician) NAME: MICK DEE MR#: [id number] ACCT: [id number] VISIT: [id number] DICTATING CLINICIAN: Ami Yeung MD JOB: [id number] LOC: 420 CLINIC PROGRESS NOTE DATE OF VISIT: 08/29/2006 SUBJECTIVE: The patient comes in today accompanied by his who is his legal guardian. She, however, is not quite familiar with his medical history yet. He has only been with her a couple of months. He started complaining of some ear pain at 9 p.m. last night. Has had nasal congestion over the weekend. No fever. PAST MEDICAL HISTORY: Per patient's health profile. MEDICATIONS: Per patient's health profile. ADR/ALLERGIES: PER PATIENT'S HEALTH PROFILE. OBJECTIVE: VS: T: 98.3. P: 92. R: 20. No apparent distress. HEENT: Right TM is bulging with purulence behind it. Left TM is clear. Conjunctivae are clear. Oropharynx is clear. NECK: Supple, without adenopathy. LUNGS: Clear to auscultation, good air movement. CARDIAC: Regular rate and rhythm; without murmurs, gallops, or rubs. ASSESSMENT: Otitis media. PLAN: The patient was given ibuprofen while here. He was begun on amoxicillin. Follow-up is otherwise p.r.n. BROOKS:[id number] C: 08/29/06 20:37 DOCUMENT: [id number] HANGER documented in this encounter Plan of Treatment Not on filedocumented as of this encounter Visit Diagnoses Not on filedocumented in this encounter Care Teams Nitro Man Relationship Specialty Start Date End Date Gil Yuan MD PCP - General 11/03/10 11/29/11 [address] [place] [address] documented as of this encounter
--- OUTSIDE RECORDS SUMMARY | 2022-05-06 17:44 | XMS_ITS | Encounter Summary ---
:2000 Author Organization [facility] Address [address] [address] Care Team Providers Name Role Phone Gil Yuan MD Primary Care Provider Encounter Details Date Type Department Care Team Description 05/12/2010 Office Visit [facility] 3850 Gil Yuan MD Pediatrics [address] [facility] [address] [facility] [place] [address] [place] [address] [phone] Social History Tobacco Use Types Packs/Day Years Used Date Smoking Tobacco: Never Assessed Sex Assigned at Date Recorded Not on file documented as of this encounter Last Filed Vital Signs Vital Sign Reading Time Taken Comments Blood Pressure - - Pulse - - Temperature - - Respiratory Rate - - Oxygen Saturation - - Inhaled Oxygen Concentration - - Weight 37.3 kg (82 lb 3.7 oz) 05/12/2010 2:07 PM CDT C: 37.3kg Height - - Body Mass Index - - documented in this encounter Progress Notes Gil Yuan MD - 05/12/2010 12:01 AM CDT Progress Notes signed by Gil Yuan MD at 05/13/10 0841 Author: Gil Yuan MD Service: (none) Author Type: Physician Filed: 11/22/10 0208 Note Time: 05/12/10 0001 Status: Signed Process Laboratory Specialist: Gil Yuan MD (Physician) S: Jake is here with aunt today due to several concerns. First, for the past 3-4 months he has had some white growths develop on his chin. Occassionally they are itchy. Now he has a few on his chest, upper arms. Is becoming very self conscious about them. They are not painful. The second concern is that he continues to have issues with nocturnal enuresis. They cannot afford to buy a potty pager. He wets the bed almost nightly and currently their washing machine is broken. Lately, he does not tell his aunt when he wets and prefers to sleep in the dirty sheets. Pull-ups help but are very expensive. The third concern is that Jake needs an asthma recheck visit. Auntonja Flores is pleased that he seems to be doing better with his asthma. Completed an ACT today with a score of 28. Needs an asthma management plan for school and has some asthma related school forms. No ED visits or hospitalizations due to asthma in the last year. Only uses his Albuterol PRN. Not on chronic inhaled steroids. Fourth issue is that he continues to see a Conduct disorder specialist at the [facility]. As of Aug 01, he will be able to see an Attachment disorder specialist at the which they hope will help him with his behavioral issues. Lately has been lying a lot. Aunt is finding this very hard to deal with. Finances continue to be a major struggle for this family. Auntonja Flores says a lot of her time is spent trying to negotiate through the [place] paperwork and system. Currently says she is on tight deadlines and can't really spare much time for extra clinic visits. O: Wt: 82.25 pounds, Ht: 55.25 inches Gen: Well appearing, in NAD HEENT: OP clear, MMM, EOMI, PERRLA CV: RRR, nl S1 and S2 and m/r/g Resp: CTA bilaterally with good aeration Abd: Soft, NT/ND. NABS. Skin: Many Molluscum contagiosum lesions on chin and a few scattered spots on upper chest and upper arms. A/P: 9 yr old male with molluscum contagiosum, asthma - mild intermittent & currently well controlled, behavioral problems & attachment disorder, nocturnal enuresis and financial struggles at home. 1. Medical Home referral. Name given to [facility] who will contact Sandra about the program and care coordination. 2. For molluscum : Referral to skin clinic for possible removal since Jake is self-conscious about the lesions. Jake is very apprehesive however about the idea of needles or removal. 3. Asthma - Asthma action plan completed, forms given to aunt and sent to [employer]. ACT 28. Per Sandra, they don't need refills today. Recheck [id number]. Flu shot given today. Immunization counseling provided. Asthma education reviewed. No ED visits or hospitalizations in the last year. Spirometry done today. Jake did quite well with his FEV1 at 118% of predicted and his FEF 25-75% at 98% of predicted. 4. Nocturnal enuresis - At this point, can again recommend the potty pager. Unfortunately they cannot afford it at this time. Discussed other behavioral modifications that may help. Briefly discussed Ddavp as a temporary relief measure if he needs to be dry overnight for a special event, etc but also did discuss potential side effects. 5. Behavioral issues - Continue to F/u with Mental Health at the [facility]. Agree with plan to see specialist for Attachment disorder. Total time of visit: 25 minutes, Time in counselin minutes spent discussing treatment options for molluscum, asthma management, nocturnal enuresis. documented in this encounter Plan of Treatment Not on filedocumented as of this encounter Visit Diagnoses Not on filedocumented in this encounter Care Teams Probation Supervisor Relationship Specialty Start Date End Date Gil Yuan MD PCP - General 11/03/10 11/29/11 [address] [place] [address] documented as of this encounter
--- OUTSIDE RECORDS SUMMARY | 2022-05-06 17:44 | XMS_ITS | Clinical Summary ---
:2000 Author Organization [facility] [place] [address] Care Team Providers Name Role Phone None Primary Care Provider Unavailable Allergies No known active allergies Medications Medication Sig Dispensed Refills Start Date End Date Status albuterol HFA (ProAir Inhale 1-2 Puffs 1 Each 0 07/30/2021 Active HFA) 90 mcg/actuation by mouth every 4 inhalerIndications: hours if needed Mild intermittent for Shortness of asthma, unspecified Breath 1st choice. whether complicated omeprazole 20 mg Take 1 Tablet (20 30 Tablet 0 07/30/2021 Active tabletIndications: mg) by mouth once Burping daily before a meal. 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 Oppositional defiant disorder of childhood or adolesce nce 01/07/2011 Immunizations Name Administration Dates Next Due COVID-19 vaccine (Veeda 07/30/2021 30mcg/0.3mL) PF, MDV DTaP 11/27/2004, 07/20/2001, 07/18/2000, 05/09/2000, 03/01/2000 HIB-HepB (Comvax) 04/10/2001, 12/29/2000, 05/09/2000, 03/01/2000 HPV 9 (Gardasil 9) 08/28/2019 Inactivated Polio Vaccine 11/27/2004, 04/10/2001, 12/29/2000 , 05/09/2000, 03/01/2000 Influenza Virus, Unspecified 05/12/2010 MMR 11/27/2004, 04/10/2001 Meningococcal Vaccine (Menactra) 08/28/2019, 12/28/2012 Pneumococcal conj 7-Valent (Prevnar 7) 04/10/2001 Tdap 11/30/2011 Varicella Vaccine 05/30/2012, 12/29/2000 Social History Tobacco Use Types Packs/Day Years Used Date Never Smoker Smokeless Tobacco: Never Used Alcohol Use Standard Drinks/Week Comments Never 0 (1 standard drink = 0.6 oz pure alcoho l) Alcohol Habits Answer Date Recorded How often do you have a drink containing alcohol? Never 07/30/2021 How many drinks containing alcohol do you have on a typical Not asked day when you are drinking? How often do you have six or more drinks on one occasion? No t asked Comment: Not asked Sex Assigned at Date Recorded Not on file Obstetrics History Last Filed Vital Signs Vital Sign Reading Time Taken Comments Blood Pressure 120/72 07/30/2021 4:22 PM ASSISTANT DIRECTOR OF NURSING Pulse 76 07/30/2021 4:22 PM ASSISTANT DIRECTOR OF NURSING Temperature 37 ??C (98.6 ??F) 01/07/2011 10:56 AM CDT Respiratory Rate - - Oxygen Saturation - - Inhaled Oxygen Concentration - - Weight 97.2 kg (214 lb 3.2 oz) 07/30/2021 4:22 PM ASSISTANT DIRECTOR OF NURSING Height 178.4 cm (5' 10.25) 07/30/2021 4:22 PM ASSISTANT DIRECTOR OF NURSING Body Mass Index 30.52 07/30/2021 4:22 PM ASSISTANT DIRECTOR OF NURSING Plan of Treatment Health Maintenance Due Date Last Done Comments Pneumococcal series for age 19-64 (1 - 12/30/2005 PCV) Depression screening for age 12+ 2011 Hepatitis C screening for age 18-79 12/30/2017 HPV series for age 9-26 (2 - Male 3-dose 09/25/2019 020 series) COVID-19 vaccine series (3 - Booster for 09/24/2021 021, 11/06/2020 Ramone series) Tetanus booster 11/29/2021 11/30/2011 Influenza for age 9-49 04/01/2022 05/12/2010 BMI (ht and wt on same day) for age 18+ 07/30/2022 07/30/20 21 Tdap Completed 11/30/2011 Results Not on filefrom Last 3 Months Insurance Payer Benefit Plan / Subscriber ID Effective Dates Phone Addre ss [facility] [id number] 2021-Present [address] [place] [address] Care Teams Flight Information Expediter Relationship Specialty Start Date End Date None PCP - General 04/22/11 .
--- OUTSIDE RECORDS SUMMARY | 2022-05-06 17:44 | XMS_ITS | Encounter Summary ---
:2000 Author Organization [facility] Address [address], [place] [address] Care Team Providers Name Role Phone Gil Yuan MD Primary Care Provider Encounter Details Date Type Department Care Team Description 12/02/2010 PN Conversion Only [place] [address] Jared Yuan MD Pediatrics [address] [address] [place] [address] Social History Tobacco Use Types Packs/Day Years Used Date Smoking Tobacco: Never Assessed Sex Assigned at Date Recorded Not on file documented as of this encounter Plan of Treatment Not on filedocumented as of this encounter Visit Diagnoses Not on filedocumented in this encounter Care Teams Charger Relationship Specialty Start Date End Date Gil Yuan MD PCP - General 11/03/10 11/29/11 [address] [place] [address] documented as of this encounter
--- OUTSIDE RECORDS SUMMARY | 2022-05-06 17:44 | XMS_ITS | Encounter Summary ---
:2000 Author Organization [facility] Address [address], [place] [address] Care Team Providers Name Role Phone Gil Yuan MD Primary Care Provider Encounter Details Date Type Department Care Team Description 10/15/2009 Office Visit [facility] 3850 Gil Yuan MD Pediatrics [address] [facility] [address] [place] [address] [place], [place] [id number] [phone] Social History Tobacco Use Types Packs/Day Years Used Date Smoking Tobacco: Never Assessed Sex Assigned at Date Recorded Not on file documented as of this encounter Last Filed Vital Signs Vital Sign Reading Time Taken Comments Blood Pressure 102/68 10/15/2009 11:25 AM CDT Pulse - - Temperature - - Respiratory Rate - - Oxygen Saturation - - Inhaled Oxygen Concentration - - Weight 36.8 kg (81 lb 3.8 oz) 10/15/2009 11:25 AM C: 36 .9kg CDT Height 138.4 cm (4' 6.5) 10/15/2009 11:25 AM C: 138.4c m CDT Body Mass Index 19.23 10/15/2009 11:25 AM CDT Body Mass Index Percentile 85.24 % 10/15/2009 11:25 AM CDT Growth Chart: [facility] (Boys, 2-20 Years) documented in this encounter Progress Notes Gil Yuan MD - 10/15/2009 12:01 AM CDT H&P signed by Gil Yuan MD at 10/15/09 1309 Author: Gil Yuan MD Service: (none) Author Type: Physician Filed: 11/21/102054 Note Time: 10/15/09 0001 Status: Signed Driver Education Instructor: Gil Yuan MD (Physician) Well Child/Adolescent Visit or Sports Physical IMPRESSION: Well child visit. Asthma, mild intermittent. Behavioral concerns - conduct disorder/attachment disorder. Child and teen checkup visit. Nocturnal enuresis. Demographics: Accompanied by Aunt who is now his legal guardian - finalized last April Patient is 8 years old. Patient is in fourth grade of school. Doing well with his aunt. [facility]. Interval History: Goes by the name Jake. 1. Jake still having some trouble in school. Was suspended last week for getting angry and kicking out a pane on a glass door. Is seeing Dr. Veloz at the [facility] in Child Psych. Likely has a diagnosis of attachment disorder/conduct disorder. It is believed that a lot of his behavioral problems may stem from his 6 yrs with his mom who was probably sicker than the family thought. Was suspended once before as well. Has a special credit report checker and is doing okay in school. 2. Has only had trouble with his asthma once over the last year. No ED visits. Had difficulty breathing one day during gym class and was able to use his Albuterol neb. Aunt feels he is eating healthier, exercising more and no longer sleeping downstairs with the dogs - all of which may be contributing to his improvements. 3. Nocturnal enuresis still present but not wetting through his pull-ups anymore. Eats 3 meals per day with a varied diet. Adequate milk intake. No concerns about sleep habits. No concerns about social interactions. Good interactions with peers. School / Activities: School: Behavioral issues at school. Other school issues and plans: See above. Activity: Gets regular activity. Organized Activity: biking, Tobacco: None. Alcohol: None. Drugs: Denies any drug use. Past History: ADR's, Medications, and Problem List reviewed and updated today on the Health Profile of [place]. Previous Illness: History of asthma. History of Behavioral issues Online medical records were reviewed by me. Social / Family History: Family: Single parent. No siblings. Family financial difficulties. Living just with his aunt, Sandra now. Has been with Sandra for 3.5 yrs. Environment: [place]. Pets: Dog(s). Cat(s). Safety: Using bicycle helmets consistently. Wearing seatbelts consistently. Mental illness. Substance abuse. FHx: Unchanged. PHYSICAL EXAM: (See online scanned documents for percentile graphs) Current Weight: 81.25 lbs. / 36.9kg. Current Height: 54.5 inches Current BMI: 19.3 Kg/meters squared Blood Pressure: 102/68 General Appearance: Alert, comfortable. HEENT: Canals/TM's normal, conjunctivae non-injected, sclerae anicteric, no strabismus, oral mucosa Cmoist without lesions. Neck: Supple, no mass or goiter. Chest: Clear with Dnormal effort. CV: Regular rate w/o murmur, pulses normal to palpation. Abdomen: Soft, nontender without hepatosplenomegaly or masses. Extremities: FFull range of motion without abnormality. Neuro: Normal tone and symmetric Greflexes. Spine: Grossly normal. Skin: No abnormal rash. Genitalia & Pubic Hair: Cb stage 1. ASSESSMENT: Well child visit. Asthma, mild intermittent. Behavioral concerns - conduct disorder/attachment disorder. Child and teen checkup visit. Nocturnal enuresis. PLAN: General Counseling: Anticipatory Guidance Handout given and discussed where appropriate. Parental concerns discussed. Parents reassured about concerns. Follow Up: In two years for WCC. F/u in 6 months for asthma recheck Medical: Asthma: Home Inhaled: Albuterol MDI 2 puffs with spacer TID-QID, or up to q 4 hours PRN until cough resolves. Behavior/Environment/Social: Bike helmet use discussed. Discussed mental health issues and available resources. Discussed importance of reaching potential in school. Seatbelt use discussed. Potty pager handout given for help with nocturnal enuresis. Continue f/u at [facility] Child Psych for behavioral issues, attachment disorder. Aunt to work with school, special ed teachers. *SH~PC~WSP ~ Shorthand Note completed on: 10/15/2009 1:00 PM documented in this encounter Plan of Treatment Not on filedocumented as of this encounter Visit Diagnoses Not on filedocumented in this encounter Care Teams Roll Coating Machine Operator Relationship Specialty Start Date End Date Gil Yuan MD PCP - General 11/03/10 11/29/11 [address] [place] [place] [address] documented as of this encounter
--- OUTSIDE RECORDS SUMMARY | 2022-05-06 17:44 | XMS_ITS | Encounter Summary ---
:2000 Author Organization [facility] Address [address] [address] Care Team Providers Name Role Phone Gil Yuan MD Primary Care Provider Reason for Visit Reason Comments Other Encounter Details Date Type Department Care Team Description 08/13/2010 Telephone [facility] 3850 P ediatrics [place], Message Other [address] [place] [address] Social History Tobacco Use Types Packs/Day Years Used Date Smoking Tobacco: Never Assessed Sex Assigned at Date Recorded Not on file documented as of this encounter Progress Notes Center, Message - 08/13/2010 1:07 PM CST PSC Medication Issue/Refill Caller Name/Relationship:-Aiyana (mom) Primary Combat Information Center Officer:-Dr. Yuan Patient to contacted pharmacy Yes or No:-N/A Comment:-Mom requesting for rx to be called into pharmacy. States patient is currently out. [employer] Member ID #:-N/A (if applicable) Pharmacy Name & Phone #:-[facility] [phone] or City:-[place], [place] Drug Name:-Proair inhaler Strength:-90 MCG Dose/Route/Freq:-1-2 puffs Q 4hrs PRN Fitter Welder:-Aiyana (mom) Best call back number:-[phone] (cell) Is it OK to leave a confidential message on this voicemail? Yes *ECODE~PNRX Created on 13Aug2010 1:07pm by KEYANA DOMINGO Y On 13Aug2010 1:08pm ELMIRA WALLACE wrote: may we refill On 13Aug2010 1:30pm MAUREEN LAGUNAS wrote: Ok to refill Acknowledged by MAUREEN LAGUNAS on 1:30pm On 13Aug2010 1:41pm ELMIRA WALLACE wrote: script faxed to the pharmacy , mom called . MERCE ANALYST documented in this encounter Plan of Treatment Not on filedocumented as of this encounter Visit Diagnoses Not on filedocumented in this encounter Care Teams Cyber Workforce Developer And Manager Relationship Specialty Start Date End Date Gli Yuan MD PCP - General 11/03/10 11/29/11 [address] [address] [place] [address] documented as of this encounter
--- OUTSIDE RECORDS SUMMARY | 2022-05-06 17:44 | XMS_ITS | Encounter Summary ---
:2000 Author Organization [facility] Address [address], [place] [address] Care Team Providers Name Role Phone Gil Yuan MD Primary Care Provider Encounter Details Date Type Department Care Team Description 05/25/2010 Office Visit [facility] 3800 Jeanie Wang MD Dermatology 3800 [facility] [address] [place] [address] [place], [place] [address] [phone] Social History Tobacco Use Types Packs/Day Years Used Date Smoking Tobacco: Never Assessed Sex Assigned at Date Recorded Not on file documented as of this encounter Progress Notes Jeanie Wang MD - 05/25/2010 12:01 AM CDT Progress Notes signed by Jeanie Wang MD at 06/29/10 0854 Author: Jeanie Wang MD Service: (none) Author Type: Physician Filed: 11/22/10 0232 Note Time: 05/25/10 0001 Status: Signed Educator Senior Clinical: Jeanie Wang MD (Physician) NAME: MICK DEE MR#: [id number] ACCT: [id number] VISIT: [id number] DICTATING CLINICIAN: Jeanie Wang MD CONFIRM #: [id number] LOC: 427 CLINIC PROGRESS NOTE DATE OF VISIT: 05/25/2010 : 2000 CHIEF COMPLAINT: A rash on the chin. HISTORY OF PRESENT ILLNESS: Jake is a 9-year-old male who comes into Dermatology Clinic for a rash on his chin, neck, right arm, left arm and left back. This has been going on since December. He has not had any treatment for this. He was diagnosed by his primary care physician with molluscum contagiosum. PAST MEDICAL HISTORY: Significant for asthma, conduct disorder. MEDICATIONS: Include ProAir inhaler. ALLERGIES: NO KNOWN DRUG ALLERGIES. FAMILY HISTORY: Unknown. REVIEW OF SYSTEMS: A complete 8-point review of systems was obtained. Please see HPI for pertinent positives and negatives. Remainder of the review of systems is negative. PHYSICAL EXAM: Healthy-appearing male in no acute distress. Alert and oriented x3. Exam includes the scalp, face, neck, chest, back, abdomen, upper extremities. He has numerous umbilicated pinkish skin-colored papules on his chin, neck, left back and upper arms. ASSESSMENT: Molluscum contagiosum. These were injected with Francine antigen therapy. A 0.2 mL was injected on a lesion on the neck as well as on the right upper back. Return to clinic in 2 months if no improvement. KKL:MEDQ C: CONFIRM #: [id number] EW SCHEDULING COORDINATOR documented in this encounter Plan of Treatment Not on filedocumented as of this encounter Visit Diagnoses Not on filedocumented in this encounter Care Teams Asbestos Cement Sheet Supervisor Relationship Specialty Start Date End Date Gil Yuan MD PCP - General 11/03/10 11/29/11 [address] [place] [address] documented as of this encounter
--- OUTSIDE RECORDS SUMMARY | 2022-05-06 17:44 | XMS_ITS | Encounter Summary ---
:2000 Author Organization [facility] Address [address], [place] [address] Care Team Providers Name Role Phone Gil Yuan MD Primary Care Provider Encounter Details Date Type Department Care Team Description 07/27/2007 Office Visit [facility] 3850 Damion Bradford MD Pediatrics [address] [place] [address] [place] [address] [phone] Social History Tobacco Use Types Packs/Day Years Used Date Smoking Tobacco: Never Assessed Sex Assigned at Date Recorded Not on file documented as of this encounter Last Filed Vital Signs Vital Sign Reading Time Taken Comments Blood Pressure - - Pulse - - Temperature - - Respiratory Rate - - Oxygen Saturation - - Inhaled Oxygen Concentration - - Weight 23.7 kg (52 lb 4 oz) 07/27/2007 2:06 PM CENTRIFUGAL SPINNER C: 2 3.7kg Height - - Body Mass Index - - documented in this encounter Plan of Treatment Not on filedocumented as of this encounter Visit Diagnoses Not on filedocumented in this encounter Care Teams Paper Cutting Machine Operator Relationship Specialty Start Date End Date Gil Yuan MD PCP - General 11/03/10 11/29/11 [address] [place] [address] documented as of this encounter
--- OUTSIDE RECORDS SUMMARY | 2022-05-06 17:44 | XMS_ITS | Encounter Summary ---
:2000 Author Organization [facility] Address [address] [address] Care Team Providers Name Role Phone Gil Yuan MD Primary Care Provider Reason for Visit Reason Comments Other Encounter Details Date Type Department Care Team Description 12/03/2008 Telephone [facility] [address] [place], Message Other [address] [place], [place] [id number] Social History Tobacco Use Types Packs/Day Years Used Date Smoking Tobacco: Never Assessed Sex Assigned at Date Recorded Not on file documented as of this encounter Progress Notes Center, Message - 12/03/2008 10:20 AM CDT Phone Note filed by ROLI at 11/20/10129 Author: ROLI Service: (none) Author Type: (none) Filed: 11/20/10129 Note Time: 12/03/08 1020 Status: Signed Liturgical Music Director: ROLI (Resource) Front Line Sx Call Caller Name/Relationship:Aiyana/All Primary Professor Of Apologetics:Dr Yuan Symptom or request?asthma concerns-Mom requests an appt with anyone today. Is appointment scheduled & when?no Mortgage Lender:Aiyana/All Best call back number:[phone] Is it OK to leave a confidential message on this voicemail?yes *ECODE~PNSX2 Created on 03Dec2008 10:20am by DARIA CRISTINA J On [id number] 10:24am CHASITY WILLIAM wrote: CLINICIAN FOLLOW-UP: None IMPRESSION: Cough. SYMPTOMS: Asthma sx this last week. At school SOB. Episodes occur in school. Taking prn albuteral inhaler at school. Denies emergent symptoms PATIENT INFORMATION: Problem List: reviewed in [facility] CARE ADVICE: appt scheduled Advised to call back if any of the following occur: symptoms worsen or persist, any other questions or concerns. PLAN: SCHEDULE APPOINTMENT WITHIN 12-24 HOURS Patient/Caller agrees with plan and denies additional questions. Reference(s) Used: Pediatric Telephone Protocols-- Cough. Call Complete. *SH~PNNL~PEDSCHOLAR~ INSPECTOR documented in this encounter Plan of Treatment Not on filedocumented as of this encounter Visit Diagnoses Not on filedocumented in this encounter Care Teams Vp Strategic Partnerships Relationship Specialty Start Date End Date Gil Yuan MD PCP - General 11/03/10 11/29/11 [address] [place] [address] documented as of this encounter
--- OUTSIDE RECORDS SUMMARY | 2022-05-06 17:44 | XMS_ITS | Encounter Summary ---
:2000 Author Organization [facility] Address [address] [address] Care Team Providers Name Role Phone Gil Yuan MD Primary Care Provider Encounter Details Date Type Department Care Team Description 05/17/2006 PN Conversion Only ELECTRIC ORGAN CHECKER [address] [place] [address] Social History Tobacco Use Types Packs/Day Years Used Date Smoking Tobacco: Never Assessed Sex Assigned at Date Recorded Not on file documented as of this encounter Plan of Treatment Not on filedocumented as of this encounter Visit Diagnoses Not on filedocumented in this encounter Care Teams Property Accountant Relationship Specialty Start Date End Date Gil Yuan MD PCP - General 11/03/10 11/29/11 [address] [place] [address] documented as of this encounter
--- OUTSIDE RECORDS SUMMARY | 2022-05-06 17:44 | XMS_ITS | Encounter Summary ---
:2000 Author Organization [facility] Address [address], [place] [address] Care Team Providers Name Role Phone Gil Yuan MD Primary Care Provider Reason for Visit Reason Comments Other Encounter Details Date Type Department Care Team Description 06/01/2010 Telephone [facility] [address] [place], Message Other [address] [place] [address] Social History Tobacco Use Types Packs/Day Years Used Date Smoking Tobacco: Never Assessed Sex Assigned at Date Recorded Not on file documented as of this encounter Progress Notes Center, Message - 06/01/2010 3:54 PM CDT Phone Note filed by [employer] at 11/21/102203 Author: [employer] Service: (none) Author Type: (none) Filed: 11/21/102203 Note Time: 06/01/101553 Status: Signed Face Burler: [employer] (Resource) Med form needs to be filled out and mailed home - no MARLENA. Placed in 's box. Created on 01Jun2010 3:54pm by YANE SINGER On 02Jun2010 3:17pm YANE SINGER wrote: Form completed and mailed home FITTER documented in this encounter Plan of Treatment Not on filedocumented as of this encounter Visit Diagnoses Not on filedocumented in this encounter Care Teams Dietitian Chief Relationship Specialty Start Date End Date Gil Yuan MD PCP - General 11/03/10 11/29/11 [address] [place] [address] documented as of this encounter
--- OUTSIDE RECORDS SUMMARY | 2022-05-06 17:44 | XMS_ITS | Encounter Summary ---
:2000 Author Organization [facility] Address [address], [place] [address] Care Team Providers Name Role Phone Gil Can MD Primary Care Provider Encounter Details Date Type Department Care Team Description 02/26/2009 Office Visit [facility] 3850 Gil Can MD Pediatrics [address] [facility] [address] [place] [facility] [place] [address] [place], [place] [address] [phone] Social History Tobacco Use Types Packs/Day Years Used Date Smoking Tobacco: Never Assessed Sex Assigned at Date Recorded Not on file documented as of this encounter Last Filed Vital Signs Vital Sign Reading Time Taken Comments Blood Pressure - - Pulse - - Temperature - - Respiratory Rate - - Oxygen Saturation - - Inhaled Oxygen Concentration - - Weight 32.8 kg (72 lb 3.9 oz) 02/26/2009 3:13 PM CDT C: 32.8kg Height - - Body Mass Index - - documented in this encounter Progress Notes Gil Can MD - 02/26/2009 12:01 AM CDT Progress Notes signed by Gil Can MD at 03/09/09 8095 Author: Gil Can MD Service: (none) Author Type: Physician Filed: 11/21/10 1513 Note Time: 02/26/09 0001 Status: Signed Color Maker: Gil Can MD (Physician) NAME: MICK DEE MR#: [id number] ACCT: [id number] VISIT: [id number] DICTATING CLINICIAN: GIL CAN MD CONFIRM #: [id number] LOC: 403 CLINIC PROGRESS NOTE DATE OF VISIT: 02/26/2009 SUBJECTIVE: : 2000. 1. Mick, who goes by the name Jake, comes in with his parental guardian today with a couple of concerns. Their first concern is nocturnal enuresis which has been a problem basically since Jake's aunt took over her guardianship role 5 years ago. Jake does not have any accidents during the day, but does about 3-4 times per week, have wetting at night. He has now resorted to wearing 2 Pullups so he does not have breakthrough wetting and wet the sheets. The biggest issue for them is financial. It is getting expensive to pay for the Pullups, and right now it is becoming difficulty to afford that option. No problems with constipation. No abdominal pain. No history of UTIs. Jake tends to be a very sound sleeper. His aunt has tried to restrict fluids to the best of her ability. They have not tried any alarms, potty pagers, or routinely waking him up before the adults in the home go to sleep. No history of urinary frequency or urinary urgency. 2. His aunt's mother 2 nights ago. Jake was very close to his grandmother and the day that that occurred he had shortness of breath and what he felt were asthma symptoms. They no longer have an inhaler at home, and unfortunately, cannot afford to purchase a new one right now. Jake's aunt was not present for the episode, but is wondering if there was an anxiety component to it as well. Once Jake became distracted and stopped thinking about the events of the day, his breathing resumed normally. He has no URI symptoms. No vomiting. No persistent shortness of breath, cough, or wheeze. He had not had problems with his asthma for several months. OBJECTIVE: VS: Wt: 72.25 lb. GENERAL: Well-appearing male, in no acute distress. HEENT: Within normal limits. Oropharynx clear. Mucous membranes moist. Tympanic membranes within normal limits. NECK: Supple. CV/RESPIRATIONS/ABDOMEN/ EXTREMITIES: Within normal limits. LUNGS: Clear to auscultation today without crackles, rhonchi, or wheezing. Normal effort. ASSESSMENT: 1. Nocturnal enuresis. 2. Shortness of breath, likely anxiety related in a child with a history of asthma. 3. Social difficulties/financial difficulties. PLAN: 1. Discussed nocturnal enuresis. Discussed behavioral modification techniques for helping to stay dry overnight and then percentage of 9-year-old boys who still do wet the bed. Reassurance given to Jake. Handouts given regarding behavioral techniques as well as the potty page, although at this point in time, they likely cannot pay for one. Mom's MA application for Jake is pending, and she is working on establishing a permanent legal guardianship. 2. His episode of shortness of breath actually sounds a lot like an anxiety attack. Discussed behavioral techniques for managing anxiety, stress. I did give Jake's aunt a prescription for a refill of an albuterol inhaler, which I do think is important for them to have on hand, and she thinks that she has enough berman on hand to pay for one at this point in time. I did tell her I would look into other options as far as paying for the prescriptions, although I do believe that [employer] has now discontinued their [employer]ok[employer]/foundation prescription grants. Follow up for worsening, worrisome symptoms. Did discuss with Jake's aunt that she could certainly follow up by phone if she had concerns or was unable to pay for the albuterol. ADS:[id number] C: 02/28/09 10:26 CONFIRM #: [id number] documented in this encounter Plan of Treatment Not on filedocumented as of this encounter Visit Diagnoses Not on filedocumented in this encounter Care Teams Traffic Observer Relationship Specialty Start Date End Date Gil Can MD PCP - General 11/03/10 11/29/11 [address] [place] [address] documented as of this encounter
--- OUTSIDE RECORDS SUMMARY | 2022-05-06 17:44 | XMS_ITS | Encounter Summary ---
:2000 Author [facility] Address [address], [place] [address] Care Team Providers Name Role Phone Gil Yuan MD Primary Care Provider Reason for Visit Reason Comments Other Encounter Details Date Type Department Care Team Description 07/07/2010 Telephone [facility] [address] ed[address]s [place], Message Other [address] [place], [place] [id number] Social History Tobacco Use Types Packs/Day Years Used Date Smoking Tobacco: Never Assessed Sex Assigned at Date Recorded Not on file documented as of this encounter Progress Notes Center, Message - 07/07/2010 4:01 PM CST Phone Note filed by [employer] at 11/22/10107 Author: [employer] Service: (none) Author Type: (none) Filed: 11/22/10107 Note Time: 07/07/10 1601 Status: Signed Residential Housekeeper: [employer] (Resource) Form Tracking Caller Name/Relationship:Gretel (school nurse [employer]) Primary Shopfitter:Gil Yuan Type of form (i.e. school,camp)?Send a signed med consent to administer meds at school on June 01. Response from was that form was sent home due to no MARLENA. Caller states that patient cannot access inhaler at school until received. Date needed:kathleen Mail/Pickup/ Contact:Gretel Fontana call back number:[phone] Elidia Melissa nurse. 8:30-4:15 Is it ok to leave a confidential message on this voicemail?yes Have you signed a consent form for release of this information? *ECODE~PNFORM2 Created on 07Jul2010 4:01pm by ROSE REDD On 07Jul2010 4:14pm CHASITY WILLIAM wrote: left message to return call to [facility]. Left message that a MARLENA form is needed to fax med auth. LY RESOURCE MANAGEMENT PROFESSOR documented in this encounter Plan of Treatment Not on filedocumented as of this encounter Visit Diagnoses Not on filedocumented in this encounter Care Teams Camera Supervisor Relationship Specialty Start Date End Date Gil Yuan MD PCP - General 11/03/10 11/29/11 [address] [place] [address] documented as of this encounter
--- OUTSIDE RECORDS SUMMARY | 2022-05-06 17:44 | XMS_ITS | Encounter Summary ---
:2000 Author Organization [facility] Address [address] [address] Care Team Providers Name Role Phone Merari Chandler APRN, BERNARDO Primary Care Provider Reason for Visit Reason Comments Questions Encounter Details Date Type Department Care Team Description 01/17/2012 Telephone [facility] [address] Merari Chandler, Questions Pediatrics BERNARDO WATTS [address] [place] [address] [place], [place] [phone] (Wo rk) Social History Tobacco Use Types Packs/Day Years Used Date Smoking Tobacco: Never Assessed Sex Assigned at Date Recorded Not on file documented as of this encounter Nursing Notes Mohan James, RN - 01/17/2012 11:44 AM CDT Mom calling saying she brought in asthma camp forms at his last visit and never got sent to camp. Needing forms today. Also needing to know if he got a flu shot this year. I reviewed his immunization record as well as records in scan doc and didn't receive a flu shot in [id number]. Needing Nandini #2. Recommended he also get Hep A and MCV4. Did get Tdap at visit in November 2011. Mom states unless he gets flu shot today he cannot attend asthma camp next week. She is not able to get him in for appt today. She states she cannot get camp form to us either via fax. She plans to take him elsewhere as she is frustrated with [facility]. I offered to fill out camp form if it can be faxed to our office today and she declined. I also suggested she could try and see if local [facility] or [facility] or other pharmacy could administer flu shot to him, she stated she didn't have a car today and couldn't do it. I did mail home copy ofhis immunization record. Donna Celestin - 01/17/2012 11:15 AM CDT Mom states that she needs some information about the patient's last visit and would like to speak with a nurse documented in this encounter Plan of Treatment Not on filedocumented as of this encounter Visit Diagnoses Not on filedocumented in this encounter Care Teams Egyptologist Relationship Specialty Start Date End Date Merari Chandler APRN, [employer] OPERATOR PCP - General 11/30/11 [address] [place] [id number] documented as of this encounter
[2022-05-06 18:00] VITALS: BP 120/74; PULSE 93; RESP 16; O2SAT 96
[2022-05-06] MEDS: dexAMETHasone 10 MG/ML inj PO (18:03)
== END 2022-05-06 18:16 | disposition home or self-care (01) ==
LOC: ED 17:42
PROVIDERS: Emergency Provider Emergency Medicine Emergency Medical Services; PCP Family Medicine
DX: U07.1 COVID-19 (principal)
CPT/HCPCS: 99283; 99284; J1100